=== PATIENT | male | born 1945 | race Caucasian/White ===

== ENCOUNTER 2024-02-25 09:00 | Outpatient (AMB) | payer MEDICARE, SELFPAY ==
[2024-02-25 09:14] VITALS: BP 102/62; PULSE 61; O2SAT 99; BMI 25.3
--- NOTE | 2024-02-25 09:14 | A.OFFVIS_ITS ---
Vital Signs 02/25/24 09:14 Height 5 ft 8 in Weight 166 lb 7.184 oz BMI 25.3 BP 102/62 Blood Pressure Location Lt brachial Position Sitting Pulse 61 Pulse Source Doppler Pulse Oximetry (%) 99 Oxygen Delivery Method Room Air Intake Visit Reasons: asthma Allergies Penicillins Allergy (Mild, Verified 02/25/24 09:17) Unknown HPI HPI asthma: Details: 79-year-old gentleman, nonsmoker, with asthma ongoing since 1970s, more active over the last 20 years previously controlled on Symbicort, changed to Wixela secondary to [place] formulary change, now with suboptimal control and significant effect on voice. Also has underlying environmental allergies. Patient denies exposure to industrial dusts. No family history of lung disease. Does not have pets at this time. [facility] Social History (Updated 02/25/24 @ 09:19 by CECE Renee) Patient Tobacco Use Status: Never used Tobacco Review of Systems Card Reports dyspnea on exertion ( Intermittent) Resp Reports cough, Denies excessive phlegm production, Reports dyspnea on exertion ( Intermittent) and Denies wheezing Aller/Immun Denies wheezing Physical Exam Vital Signs: Last Vital Signs Pulse 61 02/25/24 09:14 BP 102/62 02/25/24 09:14 Pulse Ox 99 02/25/24 09:14 Oxygen Delivery Method Room Air 02/25/24 09:14 BMI result Body Mass Index 25.3 Const General: no acute distress and alert Nutritional Appearance: not obese Orientation/consciousness: Other orientation findings ( oriented) HEENT Head: Yes atraumatic Eyes General: appearance normal, both eyes and all related structures Sclerae: sclerae normal EOM: EOMs intact bilaterally Neck Neck: Yes supple Lymphatic: no lymphadenopathy noted Resp Effort & Inspection: normal respiratory effort and no use of accessory muscles Auscultation: clear to auscultation bilaterally Cardio Rate: regular rate Rhythm: regular rhythm Heart sounds: no gallops, no murmurs and no rubs Skin General skin exam: other ( warm) Extrem General: No clubbing, No cyanosis and No edema Assessment & Plan Assessment & Plan (1) Asthma: Code(s): J45.909 - Unspecified asthma, uncomplicated Category: Medical Plan: suboptimal control and was changes on Wixela, will switch to Symbicort. Continue albuterol MDI. Prior PFT requested from [place]. (2) Environmental allergies: Code(s): Z91.09 - Other allergy status, other than to drugs and biological substances Category: Medical Plan: will obtain IgE level, CBC with differential, and RAST panel for further evaluation. Orders: Orders Resp Allergy Profile Region I Today Z91.09 - Other allergy status, other than to drugs and biological substances Complete Blood Count Auto Diff Today Z91.09 - Other allergy status, other than to drugs and biological substances Medications: New budesonide-formoterol 160-4.5 mcg/actuation (Symbicort) 2 puffs inhalation BID 10.2 grams 6RF 30 days Coding Level of Care Code New Pt Level 4 (19342) Diagnoses Asthma J45.909 Environmental allergies Z91.09
== END 2024-02-25 09:37 | disposition home or self-care (01) ==
PROVIDERS: PCP Physician Assistant Medical; Visit Provider Internal Medicine Pulmonary Disease
DX: J45.909 Unspecified asthma, uncomplicated (principal); Z91.09 Other allergy status, other than to drugs and biological substances
CPT/HCPCS: 99204

== ENCOUNTER 2024-02-25 09:00 | Outpatient (REF) | payer MEDICARE, SELFPAY ==
[2024-02-25 09:59] LABS: MANUAL DIFF FLAG NO
[2024-02-25 11:00] LABS: Basophils Percent Auto 1.2 % (0-2); Eosinophils Absolute Auto 0.1 X10*3/uL (0.0-0.4); Eosinophils Percent Auto 3.3 % (0-4); Hematocrit 46.1 % (42.0-52.0); Hemoglobin 15.4 g/dl (14.0-18.0); Imm Gran Abs Auto 0.01 X10*3/uL (0.00-0.03); Imm Gran Pct Auto 0.3 % (0.0-0.4); Lymphocytes Absolute Auto 1.5 X10*3/uL (1.2-4.9); Lymphocytes Percent Auto 43.5 % (20-40); Mean Corpuscular HGB Conc 33.4 g/dl (31.0-36.0); Mean Corpuscular Hemoglobin 30.6 pg (27.0-33.0); Mean Corpuscular Volume 91.7 fL (80.0-98.0); Mean Platelet Volume 9.8 fL (9.4-12.4); Monocytes Absolute Auto 0.3 X10*3/uL (0.1-1.2); Monocytes Percent Auto 9.8 % (2-11); Neutrophils Absolute Auto 1.4 x10*3/uL (2.0-8.3); Neutrophils Percent Auto 41.9 % (45-73); Platelet Count 146 X10*3/uL (160-400); Red Blood Count 5.03 X10*6/uL (4.60-5.80); Red Cell Distribution Width 13.8 % (11.0-16.0); White Blood Count 3.4 X10*3/uL (4.8-10.8)
[2024-03-04 08:28] LABS: Class Alternaria alternata 0/1; Class Aspergillus fumigatus 0; Class Bermuda Grass 0; Class Birch 0; Class Cat Dander 0; Class Cladosporium herbarum 0; Class Cockroach 0; Class Common Ragweed 0/1; Class Cottonwood 0; Class Derm. pterony 0/1; Class Dermatophagoides farinae 0/1; Class Dog Dander 0; Class Elm 0; Class Maple Box Elder 0; Class Mountain Cedar 0; Class Mouse Urine Protein 0; Class Mugwort 0; Class Oak 0; Class Penicillium crysogenum 0; Class Rough Pigweed 0; Class Sheep Sorrel 0; Class Sycamore 0; Class Timothy Grass 0; Class Walnut Tree 0; Class White Ash 0; Class White Mulberry 0; D001 IgE D pteronyssinus 0.14 kU/L; D002 - IgE D farinae 0.11 kU/L; E001 - IgE Cat Dander <0.10 kU/L; E005 - IgE Dog Dander <0.10 kU/L; E072-IgE Mouse Urine <0.10 kU/L; G002 IgE Bermuda Grass <0.10 kU/L; G006 - IgE Timothy Grass <0.10 kU/L; I006-IgE Cockroach, German <0.10 kU/L; Immunoglobulin E 6 kU/L (<OR=114); M001 IgE Penicillium chrysogen <0.10 kU/L; M002 - IgE Cladosporium herbar <0.10 kU/L; M003 - IgE Aspergillus fumigat <0.10 kU/L; M006 - IgE Alternaria alternat 0.22 kU/L; T001 IgE Maple/Box Elder <0.10 kU/L; T003 IgE Common Silver Birch <0.10 kU/L; T006 - IgE Cedar, Mountain <0.10 kU/L; T007 - IgE Oak, White <0.10 kU/L; T008 IgE Elm, American <0.10 kU/L; T010 - IgE Walnut <0.10 kU/L; T011 - IgE Maple Leaf Sycamore <0.10 kU/L; T014 - IgE Cottonwood <0.10 kU/L; T015 - IgE Ash, White <0.10 kU/L; T070 - IgE White Mulberry <0.10 kU/L; W001 - IgE Ragweed, Short 0.16 kU/L; W006 - IgE Mugwort <0.10 kU/L; W014 IgE Pigweed, Common <0.10 kU/L; W018 IgE Sheep Sorrel <0.10 kU/L
== END 2024-02-25 09:01 | disposition home or self-care (01) ==
LOC: HO.LAB 09:00
PROVIDERS: PCP Physician Assistant Medical; Visit Provider Internal Medicine Pulmonary Disease
DX: Z91.09 Other allergy status, other than to drugs and biological substances (principal)
CPT/HCPCS: 36415; 82785; 85025; 86003; 99202

== ENCOUNTER 2024-03-23 11:03 | Outpatient (AMB) | payer MEDICARE, SELFPAY ==
--- NOTE | 2024-03-23 11:08 | A.OFFVIS_ITS ---
Vital Signs 03/23/24 11:09 Height 5 ft 8 in Weight 167 lb BMI 25.4 BP 108/64 Blood Pressure Location Rt brachial Position Sitting Pulse 85 Pulse Source Doppler Pulse Oximetry (%) 98 Oxygen Delivery Method Room Air Intake Visit Reasons: Asthma Allergies Penicillins Allergy (Mild, Verified 03/23/24 11:17) Unknown HPI HPI Asthma: Details: 79-year-old gentleman, nonsmoker, with asthma ongoing since 1970s, more active over the last 20 years previously controlled on Symbicort, changed to W[place]ela [facility] to [facility] [facility], now with suboptimal control and significant effect on voice. Also has underlying environmental allergies. Patient denies exposure to industrial dusts. No family history of lung disease. Does not have pets at this time. After the last office visit patient is Symbicort was denied and he continue to use Wixela with reasonable symptom control, but significant hoarseness of his voice. He did complete his immunologic testing that shows some immunologic component to his symptoms. He denies recent exacerbations. [facility] Social History (Updated 02/25/24 @ 09:19 by Kristina [facility]) Patient Tobacco Use Status: Never used Tobacco Review of Systems Const Denies daytime sleepiness, Denies excessive sweating, Denies fatigue, Denies fever(s), Denies lethargy, Denies malaise, Denies night sweats, Denies snoring and Denies weight loss Eyes Denies blurry vision and Denies itchy eyes ENT Denies nasal congestion, Denies post nasal drip, Denies sinus pain, Denies sinus pressure and Denies other ( Thrush) Card Denies chest pain, Denies pedal edema, Denies dyspnea, Denies orthopnea and Denies paroxysmal nocturnal dyspnea Resp Denies cough, Denies hemoptysis, Denies excessive phlegm production, Denies dyspnea, Denies snoring and Denies wheezing GI Denies abdominal pain and Denies heartburn Musc Denies myalgias, Denies arthralgias and Denies joint swelling Skin/Breast Denies rash Neuro Denies memory loss and Denies seizure-like activity Psych Denies abnormal sleep pattern, Denies anxiety and Denies memory loss Endo Denies excessive sweating, Denies fatigue and Denies heat intolerance Gerardo/Lymph Denies easy bruising Aller/Immun Denies itchy eyes, Denies seasonal rhinorrhea and Denies wheezing Physical Exam Vital Signs: Last Vital Signs Pulse 85 03/23/24 11:09 BP 108/64 03/23/24 11:09 Pulse Ox 98 03/23/24 11:09 Oxygen Delivery Method Room Air 03/23/24 11:09 BMI result Body Mass Index 25.4 Const General: no acute distress and alert Nutritional Appearance: not obese Orientation/consciousness: Other orientation findings ( oriented) HEENT Head: Yes atraumatic Eyes General: appearance normal, both eyes and all related structures Sclerae: sclerae normal EOM: EOMs intact bilaterally Neck Neck: Yes supple Lymphatic: no lymphadenopathy noted Resp Effort & Inspection: normal respiratory effort and no use of accessory muscles Auscultation: clear to auscultation bilaterally Cardio Rate: regular rate Rhythm: regular rhythm Heart sounds: no gallops, no murmurs and no rubs Skin General skin exam: other ( warm) Extrem General: No clubbing, No cyanosis and No edema Assessment & Plan Assessment & Plan (1) Asthma: Code(s): J45.909 - Unspecified asthma, uncomplicated Category: Medical Plan: Reasonable control on Wixela and albuterol MDI. Continue current regimen. (2) Environmental allergies: Code(s): Z91.09 - Other allergy status, other than to drugs and biological substances Category: Medical Plan: Results of immunologic testing reviewed. Patient does have underlying immunologic component, however at this time it is reasonably well controlled with Wixela and Flonase. Continue current regimen. Will consider immunologic therapy if symptoms worsen. Coding Level of Care Code Est Pt Level 4 (49290) Diagnoses Asthma J45.909 Environmental allergies Z91.09
[2024-03-23 11:09] VITALS: BP 108/64; PULSE 85; O2SAT 98; BMI 25.4
== END 2024-03-23 11:41 | disposition home or self-care (01) ==
PROVIDERS: PCP Physician Assistant Medical; Visit Provider Internal Medicine Pulmonary Disease
DX: J45.909 Unspecified asthma, uncomplicated (principal); Z91.09 Other allergy status, other than to drugs and biological substances
CPT/HCPCS: 99214

== ENCOUNTER → 2024-03-23 11:03 | Outpatient (BNVA) | payer MEDICARE, SELFPAY | PROVIDERS: PCP Physician Assistant Medical; Visit Provider Internal Medicine Pulmonary Disease | DX: J45.909 Unspecified asthma, uncomplicated (principal); Z91.09 Other allergy status, other than to drugs and biological substances | CPT/HCPCS: 99212 ==

== ENCOUNTER 2024-09-27 14:16 | Outpatient (AMB) | payer MEDICARE, SELFPAY ==
[2024-09-27 14:25] VITALS: BP 124/70; PULSE 93; O2SAT 99; BMI 26.5
--- NOTE | 2024-09-27 14:25 | MHC.OFFVIS ---
Vital Signs 09/27/24 14:25 Height 5 ft 8 in Weight 174 lb BMI 26.5 BP 124/70 Blood Pressure Location Rt brachial Position Sitting Pulse 93 Pulse Source Doppler Pulse Oximetry (%) 99 Oxygen Delivery Method Room Air Intake Visit Reasons: Asthma Allergies Penicillins Allergy (Mild, Verified 03/23/24 11:17) Unknown HPI HPI Asthma: Details: 79-year-old gentleman, nonsmoker, followed for asthma and environmental allergies. His symptoms are well controlled on Wixela and albuterol MDI. He occasionally uses Flonase for environmental allergies. Patient did have an episode with exposure in a very old building that caused him to have increased asthma symptoms for approximately 24 hours, otherwise no recent exacerbations. [facility] Social History (Updated 02/25/24 @ 09:19 by Kristina Kiser Yudelka) Patient Tobacco Use Status: Never used Tobacco Review of Systems Const Denies daytime sleepiness, Denies excessive sweating, Denies fatigue, Denies fever(s), Denies lethargy, Denies malaise, Denies night sweats, Denies snoring and Denies weight loss Eyes Denies blurry vision and Denies itchy eyes ENT Denies nasal congestion, Denies post nasal drip, Denies sinus pain, Denies sinus pressure and Denies other ( Thrush) Card Denies chest pain, Denies pedal edema, Denies dyspnea, Denies orthopnea and Denies paroxysmal nocturnal dyspnea Resp Denies cough, Denies hemoptysis, Denies excessive phlegm production, Denies dyspnea, Denies snoring and Denies wheezing GI Denies abdominal pain and Denies heartburn Neuro Denies memory loss and Denies seizure-like activity Psych Denies abnormal sleep pattern, Denies anxiety and Denies memory loss Endo Denies excessive sweating, Denies fatigue and Denies heat intolerance Gerardo/Lymph Denies easy bruising Aller/Immun Denies itchy eyes, Denies seasonal rhinorrhea and Denies wheezing Physical Exam Vital Signs: Last Vital Signs Pulse 93 09/27/24 14:25 BP 124/70 09/27/24 14:25 Pulse Ox 99 09/27/24 14:25 Oxygen Delivery Method Room Air 09/27/24 14: BMI result Body Mass Index 26.5 Const General: no acute distress and alert Nutritional Appearance: not obese Orientation/consciousness: Other orientation findings ( oriented) HEENT Head: Yes atraumatic Eyes General: appearance normal, both eyes and all related structures Sclerae: sclerae normal EOM: EOMs intact bilaterally Neck Neck: Yes supple Lymphatic: no lymphadenopathy noted Resp Effort & Inspection: normal respiratory effort and no use of accessory muscles Auscultation: clear to auscultation bilaterally Cardio Rate: regular rate Rhythm: regular rhythm Heart sounds: no gallops, no murmurs and no rubs Skin General skin exam: other ( warm) Extrem General: No clubbing, No cyanosis and No edema Assessment & Plan Assessment & Plan (1) Asthma: Code(s): J45.909 - Unspecified asthma, uncomplicated Category: Medical Plan: Well controlled on Wixela and albuterol MDI. Continue current regimen. (2) Environmental allergies: Code(s): Z91.09 - Other allergy status, other than to drugs and biological substances Category: Medical Plan: Controlled on as needed Flonase. Does have underlying immunologic component, however this time reasonable controlled on inhaled corticosteroid/Flonase, will consider immunologic therapy if fails to be controlled. Coding Level of Care Code Est Pt Level 4 (75883) Diagnoses Asthma J45.909 Environmental allergies Z91.09
--- OUTSIDE RECORDS SUMMARY | 2024-09-27 16:46 | XMS_ITS | Encounter Summary ---
Author Name [facility] Organization [facility] Address [address] [place] [address] Care Team Providers Care Cooker Loader Name Role Phone EYAD SIMON Primary Care Provider Unavailabl NGOZI Cuellar Primary Care Provider Unavailab le Insurance Providers: All historical and current Section Date Range: From patient's date of to the date document was created. This section includes the names of all active insurance providers for the patient. Insurance Provider Type of Coverage Plan Name Start of Policy Coverage End of Policy Coverage Group Number Member ID Insurance Provider's Telephone Number Policy Sawyer's Name Patient's Relationship to Policy Sawyer [facility] MEDICARE SUPPLEMEN MONIQUE MEDIC ARE SUPP Aug 14, 2013 MEDICAR E SUPP [id number] JOEL PERRY STAVE PATIENT MEDICARE (WNR) MEDICARE (M) PART B Aug 14, 2012 PART B [id number] PERRYJOEL STAVE PATIENT MEDICARE (WNR) MEDICARE (M) PART B Aug 14, 2012 PART B [id number] JOEL PERRY STAVE PATIENT MEDICARE (WNR) MEDICARE (M) PART A Dec 13, 2010 PART A [id number] PERRYJOEL STAVE PATIENT MEDICARE (WNR) MEDICARE (M) PART A Dec 13, 2010 PART A [id number] JOEL PERRY PATIENT MEDICARE (WNR) MEDICARE (M) PART A Dec 13, 2010 PART A [id number] JOEL PERRY PATIENT [facility] Aug 14, 2013 [id number] JOEL PERRY PATIENT Selected Encounter This section includes the information on record at [place] for the Encounter. Date/Time Encounter Type Encounter Description Reason Pro vider Source Nov 23, 2023 10:42 AM Outpatient Encounter PRIMARY CARE/MEDICINE IHE Encounter Template Text not used by [place] Plan of Treatment: Future Appointments (+ 6 months) and Future Tests (+/- 45 days) The Plan of Treatment section includes future care activities for the patient from all [place] treatmentfacilities. This section includes future appointments and future orders which are active, pending or scheduled. Future Appointments This section includes appointments that were scheduled to occur 6 months from the date of the Encounter, up to a maximum of 20 appointments. The data comes from all [place] treatment facilities. Appointment Date/Time Appointment Type Appointme nt Facility Name Dec 11, 2023 02:00 PM [facility] February 10, 2024 09:00 AM AMBULATORY - MEDICINE [facility] Encounter Notes: All associated encounter notes This section contains the clinical notes associated to the Encounter. Date/Time Encounter Note(s) Provider Source Nov 23, 2023 10:47 AM ADDENDUM: LOCAL TITLE: Addendum STANDARD TITLE: ADDENDUM DATE OF NOTE: NOV 23, 2023@10:47:27 ENTRY DATE: NOV 23, 2023@10:47:28 AUTHOR: KHALIDA BARNES EXP COSIGNER: URGENCY: STATUS: COMPLETED 60 MINS NEW PT APPT PT IS COMING FROM [facility] /alta/ Khalida Barnes ADVANCED AUTOPSY PATHOLOGIST Signed: 11/23/2023 10:48 Receipt Acknowledged By: 11/25/2023 14:26 /es/ DEMARCO DIAZ ADVANCED AUTOPSY PATHOLOGIST 11/24/2023 10:59 /es/ ROSA ELENA LEVI RN-BC REGISTERED NURSE 11/23/2023 11:05 /es/ WILIAN EMELIA, [employer] Licensed Practical Nurse ======== --- Original Document --- 11/23/23 PATIENT LETTER (T): ANDRES Obando [address], [place], [address] Dear Ramon Walden to patient aligned care team 8 (PACT 8) with Dr. SORIANO. Prior to meeting you at your new patient appointment we are requesting some of your past medical history so that we may provide you with the exceptional care you deserve. Please note that it is very helpful to have these documents at least two days prior to your appointment date as the more information we have the better we will be able to meet your needs: * Last History & Physical * Immunization records * Medication list * Diagnosis list * Most recent labs * Diagnostic screens (Colonoscopy, Abdominal Aortic Aneurysm screen, Mammograms, PAPS, etc.) You may either drop the requested records off in person to [address] [place] [address] or you may have them faxed to: [phone] ATTN: PACT 8 *Also please complete the enclosed new patient packet and drop it off at our [place] location: [address] [place] [address]* If you have any questions please do not hesitate to contact the [facility] call center at [phone]. We look forward to providing your health care! KHALIDA BARNES LYTLE Nov 23, 2023 10:42 AM LETTERS: LOCAL TITLE: PATIENT LETTER (T) STANDARD TITLE: LETTERS DATE OF NOTE: NOV 23, 2023@10:42 ENTRY DATE: NOV 23, 2023@10:43:14 AUTHOR: KHALIDA BARNES EXP COSIGNER: URGENCY: STATUS: COMPLETED PATIENT LETTER (T) Has ADDENDA [facility] Toll Free Number Primary Care Telephone Assistance can be reached at extension [phone] [facility] scheduling can be reached at extension [phone] [facility] scheduling can be reached at ext [phone] ANDRES Obando [address], [place], [address] Dear , Welcome to patient aligned care team 8 (PACT 8) with Dr. SORIANO. Prior to meeting you at your new patient appointment we are requesting some of your past medical history so that we may provide you with the exceptional care you deserve. Please note that it is very helpful to have these documents at least two days prior to your appointment date as the more information we have the better we will be able to meet your needs: * Last History & Physical * Immunization records * Medication list * Diagnosis list * Most recent labs * Diagnostic screens (Colonoscopy, Abdominal Aortic Aneurysm screen, Mammograms, PAPS, etc.) You may either drop the requested records off in person to [address] [place] [address] or you may have them faxed to: [phone] ATTN: PACT 8 *Also please complete the enclosed new patient packet and drop it off at our [place] location: [address] [place] [address]* If you have any questions please do not hesitate to contact the [facility] call center at [phone]. We look forward to providing your health care! 11/23/2023 ADDENDUM STATUS: COMPLETED 60 MINS NEW PT APPT PT IS COMING FROM [facility] /[facility]/ Khalida Barnes ADVANCED AUTOPSY PATHOLOGIST Signed: 11/23/2023 10:48 Receipt Acknowledged By: * AWAITING SIGNATURE * DEMARCO DIAZ * AWAITING SIGNATURE * SREEKANTH BELLO * AWAITING SIGNATURE * WILIAN KAPOOR Sincerely, Your Primary Care Team [facility] [address] [facility] [address] [place] [address] [place] [address] [phone] [facility] [address] [place] [address] [place] [address] [phone] [facility] [address] [facility] [place] [address] [place] [address] [phone] KHALIDA BARNES LYTLE
--- OUTSIDE RECORDS SUMMARY | 2024-09-27 16:46 | XMS_ITS | Encounter Summary ---
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 Name Role Phone EYAD SIMON Primary Care [...] SUPP Aug 14, 2013 MEDICAR E SUPP [id number] JOEL PERRY STAVE PATIENT MEDICARE (WNR) MEDICARE (M) PART B Aug 14, 2012 PART B [id number] PERRY,GU STAVE PATIENT MEDICARE (WNR) MEDICARE (M) PART B Aug 14, 2012 PART B [id number] JOEL PERRY STAVE PATIENT MEDICARE (WNR) MEDICARE (M) PART A Dec 13, 2010 PART A [id number] [phone] JOEL PERRY STAVE PATIENT MEDICARE (WNR) MEDICARE (M) PART A Dec 13, 2010 PART A [id number] [phone] JOEL PERRY PATIENT MEDICARE (WNR) MEDICARE (M) PART A Dec 13, 2010 PART A [id number] JOEL PERRY PATIENT [facility] CARTER HERNÁNDEZ Aug 14, 2013 [id number] JOEL PERRY PATIENT Selected Encounter This section includes the information on record at [place] for the Encounter. Date/Time Encounter Type Encounter Description Reason Provider Source Dec 11, 2023 02:00 PM OFFICE O/P NEW MOD 45 MIN PRIMARY CARE/MEDICINE ICD-10-CM I10 Essential (primary) hypertension ELIF SORIANO Elijah Encounter Template Text not used by [place] Assessments - Encounter Diagnoses This section includes the primary and secondary diagnoses documented for the Encounter. Date/Time Primary/Secondary Diagnosis Diagnosis Name Provider Source Dec 11, 2023 03:04 PM PRIMARY Essential (primary) hypertension ELIF SORIANO [place] Dec 11, 2023 03:04 PM SECONDARY Allergic rhinitis, unspecified ELIF SORIANO [place] Dec 11, 2023 03:04 PM SECONDARY Contact with and exposure to other hazardous substances ELIF SORIANO [place] Dec 11, 2023 03:04 PM SECONDARY Hyperlipidemia, unspecified ANALYLEELIF Jha [place] Dec 11, 2023 03:04 PM SECONDARY Unspecified atrial fibrillation ELIF SORIANO [place] Plan of Treatment: Future Appointments (+ 6 months) and Future Tests (+/- 45 days) The Plan of Treatment section includes future care activities for the patient from all [place] treatmentfacilities. This section includes future appointments and future orders which are active, pending or scheduled. Future Appointments This section includes appointments that were scheduled to occur 6 months from the date of the Encounter, up to a maximum of 20 appointments. The data comes from all [place] treatment facilities. Appointment Date/Time Appointment Type Appointme nt Facility Name February 10, 2024 09:00 AM AMBULATORY - MEDICINE [facility] Vital Signs: All taken on the encounter date This section contains inpatient and outpatient Vital Signs collected on the date of the Encounter. Date/Time Temperature Pulse Blood Pressure Respiratory Rate SP02 Pain Height Weight Body Mass Index Source Dec 11, 2023 02:02 PM 98.6 84 135/79 96 68 171 26 [facility] IELD Social History: Smoking Status (Most current) and Tobacco Use (All prior to encounter date) This section includes the most current, and the historical, smoking and tobacco- related health factors from the [place] facility where the Encounter took place. Current Smoking Status This section includes the most current smoking, or tobacco-related health factor, from the [place] facility where the Encounter took place. Date/Time Current Smoking Status Comment Nile rushing Dec 11, 2023 02:00 PM VA-TOBACCO NEVER USED [place] Encounter Notes: All associated encounter notes This section contains the clinical notes associated to the Encounter. Date/Time Encounter Note(s) Provider Source Dec 11, 2023 02:29 PM PHYSICIAN NOTE: LOCAL TITLE: MD NOTE STANDARD TITLE: PHYSICIAN NOTE DATE OF NOTE: DEC 11, 2023@14:29 ENTRY DATE: DEC 11, 2023@14:29:11 AUTHOR: ELIF SORIANO EXP COSIGNER: URGENCY: STATUS: COMPLETED HISTORY OF PRESENT ILLNESS: NEW PATIENT 78 yo MALE , presents at the [facility] to establish connection with a [facility] PCP to be able to access services. The followed with [place] in [facility]- last seen in may 2023. labs- no new labs PCP non VA- Saul LEBLANC Problem List - Active 1-HTN 2-HLP 3-Atrial fibrilation 4-Asthma 5-Allergic rhinithis -comanaged The following VA and Non-VA meds were reconciled with patient: Active Outpatient Medications (including Supplies): MEDS ========= see list ALLERGIES: ========= PCN pollen melon LAB HISTORY: no new labs PMH ========= HTN, Asthma, Atrial fibrilation, pollen allergies , CAD- Triple bypass, flu, amoebic dysentery, allergic rhinthis PSH ========= tripple bypass- 2015 appendectomy tonsilectomy SOCIAL HISTORY: with 2 children Smoking denies Drugs denies Alcohol denies HISTORY: 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 - [employer] FROM Jun TO Feb COMBAT SERVICE INDICATED: No REVIEW OF SYSTEMS: No fever, chills No chest pain shortness of breath; sometimes palpitations No cough or wheezing No abdominal pain nausea or vomiting No dysuria No joints pain No headaches or dizziness PHYSICAL EXAMINATION: WD/overweight [place] seems to be in nonacute distress at the moment of examination S1-S2 positive, RRR LAURA, CTA bilateral Abdomen soft nontender to palpation No edema lower extremities AAO x3; ambulates without help ASSESSMENT/PLAN: 1-HTN-blood pressure controlled today in office He states he monitors 1 hour twice a week and his systolic blood pressure usually is in 110s Continue current medications diet and start exercising He states his watches his diet but not exercising 2-HLP- continue statins, healthy diet and exercise as tolerated 3-Atrial fibrilation with heart rate controlled Tolerating blood thinner without any bleeding signs He will follow-up with cardiology in community 4-Asthma-no signs of exacerbation continue current nebulizer 5-Allergic rhinithis -continue fluticasone as needed -comanaged FOLLOW UP: ========= RTC - f/u in 2 months with fasting labs Today's documentation was made using voice recognition software. This note may contain spelling/grammatical errors secondary to this software. Every effort is made to correct errors, but if mistakes are found they need to be taken in context. UPCOMING APPOINTMENTS: No data available No barriers; Patient understands and agrees to current treatment plan. If pt has any questions, concerns, or changes in current health status he/she will call or come in to the VA. Toxic Exposure Screening Follow-Up: Exposure Concern(s): 12/11/2023 Agent [place] - Toxic Exposure Concern Follow-up Question(s): 12/11/2023 No Questions - Toxic Exposure Concern [place]/caregiver has no health or medical concerns related to their concern of environmental exposure. The following connections were provided to the [place]/caregiver: [employer] ([employer]) for Benefits/claims: Medication Reconciliation: Outpatient: Has the patient been taking medications as documented in the EMLR? No: Discrepencies were identified. See below. Essential Medication List for Review used to complete this medication reconciliation. INCLUDED IN THIS LIST: Alphabetical list of active outpatient prescriptions dispensed from this [place] (local) and dispensed from another [place] or [facility] facility (remote) as well as inpatient orders (local, pending and active), local clinic medications, locally documented non-VA medications, and local prescriptions that have or been discontinued in the past 90 days. - Discrepancies were identified, addressed, and discussed with the patient/caregiver at this encounter. Discrepancies: new patient - All changes in medications, including all non-VA/Herbal/OTC medications were entered into CPRS. - If there were any medications the patient should no longer take, they were discontinued. - The patient/caregiver was instructed to update this list, discard old lists, and take this list to the next appointment, whether with a VA or non-VA provider. JLV Link Data on this list may not be complete. Please check JLV. Allergies/ADRs (Tool #5) FACILITY ALLERGY/ADR -------- [facility] [place] [facility] [place] [facility] [place] [facility] [place] [facility] [facility] [place] [facility] [place] [facility] [place] Med Recon NoGlossary (Tool #1) INCLUDED IN THIS LIST: Alphabetical list of active outpatient prescriptions dispensed from this [facility] (local) and dispensed from another [place] or [facility] facility (remote) as well as inpatient orders (local pending and active), local clinic medications, locally documented non-VA medications, and local prescriptions that have or been discontinued in the past 90 days. Non-VA Meds Last Documented On: Data not found NOTE The display of VA prescriptions dispensed from another [place] or [facility] facility (remote) is limited to active outpatient prescription entries matched to National Drug File at the originating site and may not include some items such as investigational drugs, compounds, etc. NOT INCLUDED IN THIS LIST: Medications self-entered by the patient into personal health records (i.e. [employer]) are NOT included in this list. Non-VA medications documented outside this [place], remote inpatient orders (regardless of status) and remote clinic medications are NOT included in this list. The patient and provider must always discuss medications the patient is taking, regardless of where the medication was dispensed or obtained. Remote APIXABAN 5MG TAB TAKE ONE TABLET BY MOUTH TWICE A DAY TO PREVENT BLOOD CLOTS MUST OBTAIN UPDATED LAB WORK FOR FURTHER RENEWALS Last Filled: 09/21/23 (Active at [facility]) Rx Expiration Date: 03/18/24 Days Supply: 90 Remote ATORVASTATIN CA 80MG TAB TAKE ONE TABLET BY MOUTH AT BEDTIME FOR LOWERING CHOLESTEROL Last Filled: 10/09/23 (Active at [facility]) Rx Expiration Date: 04/16/24 Days Supply: 90 Remote FLUTICASONE 100MCG/SALMETEROL 50MCG INHL,ORAL,DISKUS,60 INHALE 1 PUFF BY MOUTH TWICE A DAY *USE REGULARLY TO PREVENT SHORTNESS OF BREATH - RINSE MOUTH AFTER USE* Last Filled: 06/29/23 (Active at [facility]) Rx Expiration Date: 12/13/23 Days Supply: 90 Remote HYDROCHLOROTHIAZIDE 25MG/TRIAMTERENE 37.5MG TAB TAKE 1 TABLET BY MOUTH EVERY DAY FOR BLOOD PRESSURE Last Filled: 09/21/23 (Active at [facility]) Rx Expiration Date: 04/22/24 Days Supply: 90 Remote LOSARTAN POTASSIUM 100MG TAB TAKE ONE TABLET BY MOUTH EVERY DAY FOR HEART AND BLOOD PRESSURE Last Filled: 09/21/23 (Active at [facility]) Rx Expiration Date: 04/22/24 Days Supply: 90 Remote METOPROLOL TARTRATE 100MG TAB TAKE ONE TABLET BY MOUTH EVERY 12 HOURS FOR HEART AND BLOOD PRESSURE Last Filled: 09/21/23 (Active at [facility]) Rx Expiration Date: 03/18/24 Days Supply: 90 SUPPLIES /alta/ ELIF SORIANO MD PRIMARY CARE PHYSICIAN Signed: 12/11/2023 15:04 ELIF SORIANO [place] Dec 11, 2023 02:03 PM PREVENTIVE MEDICIN E NURSING NOTE: LOCAL TITLE: CLINICAL REMINDERS/NURSING STANDARD TITLE: PREVENTIVE MEDICINE NURSING NOTE DATE OF NOTE: DEC 11, 2023@14:03 ENTRY DATE: DEC 11, 2023@14:03:42 AUTHOR: WILIAN KAPOOR COSIGNER: URGENCY: STATUS: COMPLETED Tobacco Pack Year History: Patient never smoked cigarettes or smoked FEWER THAN 100 cigarettes/lifetime Advance Directive Screen MH AD: Patient does not have a completed advance directive on file at any facility, [place] or outside. S/he is not interested in completing one at this time. The patient received education about Advance Directives and written notification of his/her rights. Suicide Screen: C-SSRS Screening Kay Suicide Severity Rating Scale (C-SSRS) screener 1. Over the past month, have you wished you were or wished you could go to sleep and not wake up? No 2. Over the past month, have you had any actual thoughts of killing yourself? No 3. Over the past month, have you been thinking about how you might do this? Response not required due to responses to other questions. 4. Over the past month, have you had these thoughts and had some intention of acting on them? Response not required due to responses to other questions. 5. Over the past month, have you started to work out or worked out the details of how to kill yourself? Response not required due to responses to other questions. 6. If yes, at any time in the past month did you intend to carry out this plan? Response not required due to responses to other questions. 7. In your lifetime, have you ever done anything, started to do anything, or prepared to do anything to end your life (for example, collected pills, obtained a gun, gave away valuables, went to the roof but didn't jump)? No 8. If YES, was this within the past 3 months? Response not required due to responses to other questions. Toxic Exposure Screening: The /caregiver was asked if they believe the [place] experienced any toxic exposure(s), such as Airborne Hazards and Open Burn Pit, [place] War related exposures, Agent [place], Radiation, contaminated water at [place] or other such exposures, while serving in the Armed Forces. /caregiver believes the [place] was exposed to the following while serving in the Armed Forces: Agent [place]: [place]/caregiver was made aware of educational resources that includes information on the Registry Program, presumptive conditions and how to file a claim. Printed information was offered and provided if desired. No questions at this time /caregiver was informed of local points of contact. Contact information for local resources: Benefits/Claim for Disability Compensation Questions:National VBA [place] Healthcare Enrollment: [facility] Eligibility direct dialed at [phone] Registry: [facility] Health Coordinator ext [phone] Toxic Exposure Screening Follow-Up reminder is needed. Name of person notified: Elif Soriano M.D. Homelessness/Food Insecurity Screen: In the past 2 months, have you been living in stable housing that you own, rent, or stay in as part of a household? Yes - Living in stable housing. Are you worried or concerned that in the next 2 months you may NOT have stable housing that you own, rent, or stay in as part of a household? No - Not worried about housing near future The [place] reports the following: Within the past 12 months, you worried whether your food would run out before you got money to buy more. Never true Within the past 12 months, the food you bought just didn't last and you didn't have money to get more. Never true Depression Screening: Perform PHQ-2 A PHQ-2 screen was performed. The score was 0 which is a negative screen for depression. Over the past two weeks, how often have you been bothered by the following problems? 1. Little interest or pleasure in doing things Not at all 2. Feeling down, depressed, or hopeless Not at all Falls & Incontinence Screen: Falls Screen: During the past 12 months, did the patient report any falls? 4. No falls within the past year. Incontinence Screen: During the past 12 months, has the patient has any characteristics of incontinence (ability, voiding, leakage, etc.)? No incontinence. Pneumococcal Conjugate Vaccine (PCV15/PCV20): Refuses PCV vaccine Immunization: PNEUMOCOCCAL CONJUGATE, UNSPECIFIED FORMULATION Refusal Reason: PATIENT DECISION Patient refuses all immunization(s) in the PneumoPCV group Date Documented: 12/11/23 14:05 Preferred Language: What is your, or your caregiver's preferred language for healthcare? Preferred Language: [place] PTSD Screening: PC-PTSD-5 A PTSD screening test (PC-PTSD-5) was negative (score=0). IN THE PAST MONTH, have you ever had any experience that was so frightening, horrible or traumatic. For example: A serious accident or fire a physical or sexual assault or abuse An earthquake or flood A war Seeing someone be killed or seriously injured Having a loved one through homicide or suicide 1. Have you ever experienced this kind of event? NO 2. Had nightmares about the event(s) or thought about the event(s) when you did not want to? Response not required due to responses to other questions. 3. Tried hard not to think about the event(s) or went out of your way to avoid situations that reminded you of the event(s)? Response not required due to responses to other questions. 4. Been constantly on guard, watchful, or easily startled? Response not required due to responses to other questions. 5. [place] numb or detached from people, activities, or your surroundings? Response not required due to responses to other questions. 6. [place] guilty or unable to stop blaming yourself or others for the event(s) or any problems the event(s) may have caused? Response not required due to responses to other questions. Tobacco Use Screening: The patient has never used tobacco. Influenza Immunization: The patient has received the seasonal influenza vaccine for the current season at another location. Documented: INFLUENZA, UNSPECIFIED FORMULATION Historical Date Administered: Jun 2023 Exact date unknown Outside Location: Outside Healthcare Provider Information Source: SOURCE UNSPECIFIED Alcohol Use Screen (AUDIT-C): Alcohol Screen: SCREEN FOR ALCOHOL (AUDIT-C) An alcohol screening test (AUDIT-C) was negative (score=1). 1. How often did you have a drink containing alcohol in the past year? Consider a drink to be a 12 ounce can or bottle of regular beer, 8 ounces of malt liquor, a 5 ounce glass of table wine, or a 1.5 ounce shot of liquor (like scotch, gin, or vodka). Monthly or less 2. How many drinks containing alcohol did you have on a typical day when you were drinking in the past year? Zero drinks 3. How often did you have six or more drinks on one occasion in the past year? Never COVID-19 Immunization: Defer vaccine, reassess in 1 year Reason: DECLINED Tdap Immunization: The patient declines to receive the recommended dose of Tdap vaccine. Immunization: TDAP Refusal Reason: PATIENT DECISION Patient refuses all immunization(s) in the TDAP group Date Documented: 12/11/23 14:06 Herpes Zoster (Shingles) Vaccine: The patient declines to receive the recommended dose of zoster (shingles) vaccine. Immunization: ZOSTER RECOMBINANT Refusal Reason: PATIENT DECISION Patient refuses all immunization(s) in the ZOSTER group Date Documented: 12/11/23 14:06 Sexual Orientation: The patient thinks of their sexual orientation as: Straight or Heterosexual RHS Screen: RHS Screen Environmental Check Upon inquiry, the individual reports that the environment is safe to proceed. Informed Consent to Screen and Document The individual consents to proceed with screening. The individual consents to documentation of responses. PRIMARY SCREEN: In the past 12 months, how often did a current or former intimate partner (e.g., boyfriend, girlfriend, , , sexual partner): 1. Scream or curse at you Never 2. Insult or talk down to you Never 3. Threaten you with harm Never 4. Physically hurt you Never 5. Force or pressure you to have sexual contact against your will, or when you were unable to say no Never ?? The HITS tool (items 1-4 above) is [place] copyright protected by Duane Rush MD, and the user has full rights to use it throughout the [place] system. PRIMARY SCREEN RESULT: The Primary Screen is NEGATIVE. The individual answered never to all forms of IPV above (i.e., answered never to all 5 items) The individual accepts education and/or resources: No EDUCATION: The individual indicated readiness to learn. Education offered during this session as noted above. The individual indicated understanding by asking relevant questions and making appropriate comments. No barriers to learning were observed or identified. == PROVIDER TO ADDRESS Hep C and HIV REMINDERS=== /alta/ WILIAN KAPOOR LPN Licensed Practical Nurse Signed: 12/11/2023 14:07 WILIAN KAPOOR [place]
--- OUTSIDE RECORDS SUMMARY | 2024-09-27 16:46 | XMS_ITS | Encounter Summary ---
Author Name [facility] [place] Address [address] [place] [address] Care Team Providers Care Tray Worker Name Role Phone EYAD SIMON Primary Care [...] SUPP Aug 14, 2013 MEDICAR E SUPP [id number] JOEL PERRY STAVE PATIENT MEDICARE (WNR) MEDICARE (M) PART B Aug 14, 2012 PART B [id number] PERRYJOEL STAVE PATIENT MEDICARE (WNR) MEDICARE (M) PART B Aug 14, 2012 PART B [id number] [phone] JOEL PERRY STAVE PATIENT MEDICARE (WNR) MEDICARE (M) PART A Dec 13, 2010 PART A [id number] PERRYJOEL STAVE PATIENT MEDICARE (WNR) MEDICARE (M) PART A Dec 13, 2010 PART A [id number] [phone] JOEL PERRY PATIENT MEDICARE (WNR) MEDICARE (M) PART A Dec 13, 2010 PART A [id number] [phone] JOEL PERRY PATIENT [facility] HERN[facility]Z Aug 14, 2013 [id number] JOEL PERRY PATIENT Selected Encounter This section includes the information on record at [place] for the Encounter. Date/Time Encounter Type Encounter Description Reason Pro vider Source February 04, 2024 04:03 PM Outpatient Encounter PRIMARY CARE/MEDICINE IHE Encounter Template Text not used by [place] Plan of Treatment: Future Appointments (+ 6 months) and Future Tests (+/- 45 days) The Plan of Treatment section includes future care activities for the patient from all [place] treatmentfacilities. This section includes future appointments and future orders which are active, pending or scheduled. Future Appointments This section includes appointments that were scheduled to occur 6 months from the date of the Encounter, up to a maximum of 20 appointments. The data comes from all [place] treatment facilities. Appointment Date/Time Appointment Type Appointme nt Facility Name February 10, 2024 09:00 AM AMBULATORY - MEDICINE [facility] Aug 03, 2024 01:00 PM AMBULATORY - MEDICINE [facility] Lab Results: +/- 30 days of the encounter This section includes the Chemistry and Hematology Lab Results on record with [place] for the patient. Radiology Reports and Pathology Reports are provided separately, in subsequent sections. Lab Results This section contains the Chemistry/Hematology Results that were resulted 30 days before or 30 daysafter the date of the Encounter. Date/Time Source Result Type Result - Unit Interpretation Reference Range Comment February 04, 2024 08:48 AM [facility] PT & INR (COUMADIN) Specimen Type: PLASMA No comment entered. Ordering Provider: EYAD SIMON Report Released Date/Time: Dec 18, 2023 08:42 AM Reporting [facility]: [facility] [address] [facility] [address] Performing Lab: [address] [address] INR 1.7 PROTIME 18.9 s H 10.0-13.1 February 04, 2024 08:48 AM [facility] TSH Specimen Type: SERUM No comment entered. Ordering Provider: CHANDANA SORIANO Report Released Date/Time: January 28, 2024 08:49 AM Reporting Lab: [facility] [address] [address] Performing Lab: [facility] [address] TSH 1.80 u[IU]/mL 0.35-5.00 February 04, 2024 08:48 AM [facility] BASIC METABOLIC PANEL (fasting) Specime n Type: SERUM No comment entered. Ordering Provider: CHANDANA SORIANO Report Released Date/Time: January 28, 2024 08:49 AM Reporting Lab: [facility] [address] [address] Performing Lab: [facility] [address] UREA NITROGEN 45 mg/dL H 7-25 GLUCOSE 105 mg/dL H 65-100 SODIUM 138 mmol/L 135-145 POTASSIUM 3.8 mmol/L 3.5-5.0 CHLORIDE 108 mmol/L 100-110 CO2 23 meq/L 20-30 CREATININE, Serum 1.49 mg/dL H 0.50-1.40 eGFR(CKD-EPI 2020) 48 mL/min L >60 February 04, 2024 08:48 AM [facility] LIPID PANEL FASTING Specimen Type: SERUM No comment entered. Ordering Provider: CHANDANA SORIANO Report Released Date/Time: January 28, 2024 08:49 AM Reporting Lab: [facility] [address] Performing Lab: [facility] [address] CHOLESTEROL 105 mg/dL TRIGLYCERIDE 68 mg/dL 0-150 LDL calculated 58 mg/dL 0-129 CHOL/HDL 3.2 HDL CHOLESTEROL 33 mg/dL L 40-60 February 04, 2024 08:48 AM [facility] LIVER FUNCTION Specimen Type: SERUM No comment entered. Ordering Provider: CHANDANA SORIANO Report Released Date/Time: January 28, 2024 08:49 AM Reporting Lab: [facility] [address] Performing Lab: [address] [address] PROTEIN,TOTAL 6.3 g/dL 6.0-8.3 ALBUMIN 3.7 g/dL 3.5-5.0 ALKALINE PHOSPHATASE 69 U/L 40-150 AST 18 U/L 5-34 ALT 18 U/L BILIRUBIN, TOTAL 0.9 mg/dL 0.2-1.2 February 04, 2024 08:48 AM [facility] CBC AND DIFF (AUTO) Specimen Type: BLOOD No comment entered. Ordering Provider: CHANDANA SORIANO Report Released Date/Time: January 28, 2024 08:49 AM Reporting Lab: [address] [address] Performing Lab: [address] [address] WBC 4.09 10*3/uL L 4.50-11.00 RBC 4.90 10*6/uL 4.23-5.66 HGB 14.8 g/dL 12.8-17 HCT 45.1 39.2-50.4 MCV 92.0 fL 82-99 MCHC 32.8 g/dL 30.8-35.1 PLT 131 10*3/uL L 140-360 RDW-CV 13.4 12.0-16.0 Vermillion, Abs 0.54 10*3/uL 0.30-1.10 MCH 30.2 pg 26.2-32.6 Neut % 36.2 L 43.7-75.8 Lymph % 46.5 H 14.0-42.3 Vermillion % 13.2 5.1-13.7 Eos % 2.9 0.4-6.8 Baso % 1.2 0.1-2.0 Neut, Abs 1.48 10*3/uL L 2.20-7.60 Lymph, Abs 1.90 10*3/uL 1.00-3.20 Eos, Abs 0.12 10*3/uL 0.03-0.44 Baso, Abs 0.05 10*3/uL 0.01-0.13 Immature Gran % 0.0 0.0-0.7 Immature Gran, Abs 0.00 10*3/uL 0.00-0.06 February 04, 2024 08:48 AM [facility] HEMOGLOBIN A1C PANEL Specimen Type: BLOOD Comment: Values obtained from A1C measurements can vary. For atypical A1C assays, a reported value of 7.0 could actually be between 6.72 and 7.28 if measured by a reference method. A reported value of 9.0 could actually be between 8.73 and 9.27. Ref: http://www.ngs p.org/CAPdata. asp Ordering Provider: CHANDANA SORIANO Report Released Date/Time: January 28, 2024 08:49 AM Reporting Lab: [address] [address] Performing Lab: [address] [address] HEMOGLOBIN A1C 5.8 H 4.0-5.6 Encounter Notes: All associated encounter notes This section contains the clinical notes associated to the Encounter. 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 /es/ DEMARCO DIAZ ADVANCED BOBBIN WASHER Signed: 02/04/2024 16:05 DEMARCO DIAZ SAYDA
--- OUTSIDE RECORDS SUMMARY | 2024-09-27 16:46 | XMS_ITS | Encounter Summary ---
Author Name [facility] [place] Address [address] [place] [address] Care Team Providers Care Show Girl Name Role Phone EYAD SIMON Primary Care [...] SUPP Aug 14, 2013 MEDICAR E SUPP [id number] JOEL PERRY PATIENT MEDICARE (WNR) MEDICARE (M) PART B Aug 14, 2012 PART B [id number] [phone] [id number] JOEL PERRY STAVE PATIENT MEDICARE (WNR) MEDICARE (M) PART B Aug 14, 2012 PART B [id number] JOEL PERRY PATIENT MEDICARE (WNR) MEDICARE () PART A Dec 13, 2010 PART A [id number] [phone] JOEL PERRY STAVE PATIENT MEDICARE (WNR) MEDICARE (M) PART A Dec 13, 2010 PART A [id number] [phone] JOEL PERRY PATIENT MEDICARE (WNR) MEDICARE (M) PART A Dec 13, 2010 PART A [id number] JOEL PERRY PATIENT [facility] Aug 14, 2013 [id number] JOEL PERRY PATIENT Selected Encounter This section includes the information on record at [place] for the Encounter. Date/Time Encounter Type Encounter Description Reason Pro vider Source Nov 20, 2023 02:03 PM Outpatient Encounter ADMIN PAT ACTIVTIES (MASNONCT) IHE Encounter Template Text not used by [place] Plan of Treatment: Future Appointments (+ 6 months) and Future Tests (+/- 45 days) The Plan of Treatment section includes future care activities for the patient from all [place] treatmentfacilities. This section includes future appointments and future orders which are active, pending or scheduled. Future Appointments This section includes appointments that were scheduled to occur 6 months from the date of the Encounter, up to a maximum of 20 appointments. The data comes from all [place] treatment facilities. Appointment Date/Time Appointment Type Appointme nt Facility Name Dec 11, 2023 02:00 PM [facility] February 10, 2024 09:00 AM [facility] Encounter Notes: All associated encounter notes This section contains the clinical notes associated to the Encounter. 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 (60MINS) WITH CWM/SO/PACT EIGHT PROVIDER ON 12/11/2023 AT 14:00. THIS CLEAT FEEDER HAD REQUESTED RECORDS FROM DR.STEPHEN JIA [facility],DR.OLIVIA JHON MD/[facility] CARDIOLOGY, OV NOTES FROM NONA BERUMEN MALTZMA N, [facility]. ALSO REQUESTED NOTES FROM DR.MICHAEL EFRAÍN MD/[facility]. /es/ DEMARCO DIAZ ADVANCED TERRITORY SALES PROFESSIONAL Signed: 11/25/2023 14:26 Receipt Acknowledged By: 11/25/2023 14:31 /es/ ROSA ELENA LEVI RN-BC REGISTERED NURSE 11/25/2023 14:30 /es/ WILIAN KAPOOR LPN Licensed Practical Nurse === --- Original Document --- 11/20/23 CCC: SCHEDULING ADMINISTRATION: Patient Demographics Patient Name: ANDRES PERRY Patient Primary Phone: [phone] Patient Primary [address]: [address] [place] [address] Patient : 1945 Patient Age: 78 Current Location: [place] Call Back Number: [phone] Caller/Recipient Relation to Patient: Self Scheduling Cannot Complete Scheduling Action Reason: No Appointment Available Requested Service(s): Primary Care Scheduling Note Reason: Cannot Complete Appointment Request Open Request: None of the above Administrative Administrative Note Reason: Returned Call Administrative Note Comments: Patient is requesting primary care provider in [facility] . Requesting a call back to see if he eligible . /es/ DIMPLE GLORIA CCC AMSA Signed: 11/20/2023 14:04 Receipt Acknowledged By: 11/22/2023 17:28 /es/ LEIGH GOOD MSA GRINDER GEAR, [facility] 11/20/2023 16:22 /es/ ENE US GRINDER GEAR AMSA 11/20/2023 15:16 /es/ CHITO MAYS GRINDER GEAR TERRITORY SALES PROFESSIONAL 11/20/2023 ADDENDUM STATUS: COMPLETED AMSA/RN please call to schedule for a 60 min new patient appointment with PACT 8 within 20 days, virtual or face to face to meet new pt scheduling guidelines. 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 NO ANSWER,COULD NOT LEAVE A MESSAGE. /nacho DIAZ ADVANCED TERRITORY SALES PROFESSIONAL Signed: 11/20/2023 16:03 EBONY DIAZ [place] [facility] [place] [facility] Nov 20, 2023 03:16 PM ADDENDUM: LOCAL TITLE: Addendum STANDARD TITLE: ADDENDUM DATE OF NOTE: NOV 20, 2023@15:16:55 ENTRY DATE: NOV 20, 2023@15:16:56 AUTHOR: CHITO MAYS EXP COSIGNER: URGENCY: STATUS: COMPLETED AMSA/RN please call to schedule for a 60 min new patient appointment with PACT 8 within 20 days, virtual or face to face to meet new pt scheduling guidelines. Appointment needs to be scheduled on or before Nov PATIENT PHONE - No data available F/U RTC should go to SO/PACT 8 /alta/ CHITO MAYS GRINDER GEAR TERRITORY SALES PROFESSIONAL Signed: 11/20/2023 15:17 Receipt Acknowledged By: 11/25/2023 14:16 /nacho DIAZ ADVANCED TERRITORY SALES PROFESSIONAL === --- Original Document --- 03/08/24 CCC: SCHEDULING ADMINISTRATION: Patient Demographics Patient Name: ANDRES PERRY Patient Primary Phone: [phone] Patient Primary Address: [place] [address] Patient : 1945 Patient Age: 78 Current Location: [place] Call Back Number: [phone] Caller/Recipient Relation to Patient: Self Scheduling Cannot Complete Scheduling Action Reason: No Appointment Available Requested Service(s): Primary Care Scheduling Note Reason: Cannot Complete Appointment Request Open Request: None of the above Administrative Administrative Note Reason: Returned Call Administrative Note Comments: Patient is requesting primary care provider in [facility] . Requesting a call back to see if he eligible . 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 NO ANSWER,COULD NOT LEAVE A MESSAGE. /alta/ DEMARCO DIAZ ADVANCED TERRITORY SALES PROFESSIONAL Signed: 11/20/2023 16:03 11/25/2023 ADDENDUM STATUS: UNSIGNED You may not VIEW this UNSIGNED Addendum. CHITO MAYS [place] [facility] [place] [facility] Nov 20, 2023 02:03 PM ADMINISTRATIVE NOTE: LOCAL TITLE: CCC: SCHEDULING ADMINISTRATION STANDARD TITLE: ADMINISTRATIVE NOTE DATE OF NOTE: NOV 20, 2023@14:03:52 ENTRY DATE: NOV 20, 2023@14:03:52 AUTHOR: DIMPLE MENDES EXP COSIGNER: URGENCY: STATUS: COMPLETED CCC: SCHEDULING ADMINISTRATION Has ADDENDA Patient Demographics Patient Name: ANDRES PERRY Patient Primary Phone: [phone] Patient Primary Address: [place] [address] Patient : 1945 Patient Age: 78 Current Location: [place] Call Back Number: [phone] Caller/Recipient Relation to Patient: Self Scheduling Cannot Complete Scheduling Action Reason: No Appointment Available Requested Service(s): Primary Care Scheduling Note Reason: Cannot Complete Appointment Request Open Request: None of the above Administrative Administrative Note Reason: Returned Call Administrative Note Comments: Patient is requesting primary care provider in [facility] . Requesting a call back to see if he eligible . /es/ DIMPLE RAZON1 [facility] AMSA Signed: 11/20/2023 14:04 Receipt Acknowledged By: 11/22/2023 17:28 /es/ LEIGH GOOD MSA GRINDER GEAR, [facility] 11/20/2023 16:22 /es/ ENE US GRINDER GEAR AMSA 11/20/2023 15:16 /es/ CHITO MAYS GRINDER GEAR TERRITORY SALES PROFESSIONAL 11/20/2023 ADDENDUM STATUS: COMPLETED AMSA/RN please call to schedule for a 60 min new patient appointment with PACT 8 within 20 days, virtual or face to face to meet new pt scheduling guidelines. Appointment needs to be scheduled on or before Nov PATIENT PHONE - No data available F/U RTC should go to SO/PACT 8 /atla/ CHITO MAYS GRINDER GEAR TERRITORY SALES PROFESSIONAL Signed: 11/20/2023 15:17 Receipt Acknowledged By: 11/25/2023 14:16 /es/ DEMARCO DIAZ ADVANCED TERRITORY SALES PROFESSIONAL 11/20/2023 ADDENDUM STATUS: COMPLETED THIS CLEAT FEEDER HAD CALLED TO SCHEDULE F2F NEW PATIENT APPT.(60MINS) WITH CWM/SO/PACT EIGHT PROVIDER. NO ANSWER,COULD NOT LEAVE A MESSAGE. /es/ DEMARCO IDAZ ADVANCED TERRITORY SALES PROFESSIONAL Signed: 11/20/2023 16:03 11/25/2023 ADDENDUM STATUS: COMPLETED THIS CLEAT FEEDER HAD SPOKEN TO ON 11/23/2023 TO SCHEDULE NEW PATIENT APPT. (60MINS) WITH CWM/SO/PACT EIGHT PROVIDER ON 12/11/2023 AT 14:00. THIS CLEAT FEEDER HAD REQUESTED RECORDS FROM DR.STEPH[facility]IA [facility],DR.OLIVIA JHON MD/[facility] CARDIOLOGY, OV NOTES FROM NONA BERUMEN MALTZMA N, [facility]. ALSO REQUESTED NOTES FROM DR.MICHAEL EFRAÍN MD/[facility]. // DEMARCO DIAZ ADVANCED TERRITORY SALES PROFESSIONAL Signed: 11/25/2023 14:26 Receipt Acknowledged By: * AWAITING SIGNATURE * SREEKANTH BELLO * AWAITING SIGNATURE * WILIAN KAPOOR ANDREA M [facility]
--- OUTSIDE RECORDS SUMMARY | 2024-09-27 16:46 | XMS_ITS | Encounter Summary ---
Author Name [facility] [facility] [place] Address [address] [place] [address] Care Team Providers Care Bi Report Developer Name Role Phone EYAD SIMON Primary Care [...] SUPP Aug 14, 2013 MEDICAR E SUPP [id number] JOEL PERRY STABARBARA PATIENT MEDICARE (WNR) MEDICARE (M) PART B Aug 14, 2012 PART B [id number] JOEL PERRY STAVE PATIENT MEDICARE (WNR) MEDICARE (M) PART B Aug 14, 2012 PART B [id number] JOEL PERRY STAVE PATIENT MEDICARE (WNR) MEDICARE () PART A Dec 13, 2010 PART A [id number] [phone] [id number] JOEL PERRY STAVE PATIENT MEDICARE (WNR) MEDICARE () PART A Dec 13, 2010 PART A [id number] JOEL PERRY PATIENT MEDICARE (WNR) MEDICARE (M) PART A Dec 13, 2010 PART A [id number] [phone] JOEL PERRY PATIENT [facility] CARTER HERNÁNDEZ Aug 14, 2013 [id number] JOEL PERRY PATIENT Selected Encounter This section includes the information on record at [place] for the Encounter. Date/Time Encounter Type Encounter Description Reason Provider Source Dec 21, 2023 09:41 AM QNHP OL DIG ASSMT&MGMT 5-10 CLINICAL PHARMACY ICD-10-CM Z04.89 Encounter for examination and observation for oth reasons AAKASH SWEET Encounter Template Text not used by [place] Assessments - Encounter Diagnoses This section includes the primary and secondary diagnoses documented for the Encounter. Date/Time Primary/Secondary Diagnosis Diagnosis Name Provider Source Dec 21, 2023 09:47 AM PRIMARY Encounter for examination and observation for oth reasons AAKASH SWEET [facility] Plan of Treatment: Future Appointments (+ 6 months) and Future Tests (+/- 45 days) The Plan of Treatment section includes future care activities for the patient from all [place] treatmentfacilities. This section includes future appointments and future orders which are active, pending or scheduled. Future Appointments This section includes appointments that were scheduled to occur 6 months from the date of the Encounter, up to a maximum of 20 appointments. The data comes from all [place] treatment facilities. Appointment Date/Time Appointment Type Appointme nt Facility Name February 10, 2024 09:00 AM AMBULATORY - MEDICINE [facility] Encounter Notes: All associated encounter notes This section contains the clinical notes associated to the Encounter. Date/Time Encounter Note(s) Provider Source Dec 21, 2023 09:41 AM PHARMACY MEDICATIO N MGT CONSULT: LOCAL TITLE: CONSULT REPORT/ANTICOAGULATION CLINIC STANDARD TITLE: PHARMACY MEDICATION MGT CONSULT DATE OF NOTE: DEC 21, 2023@09:41 ENTRY DATE: DEC 21, 2023@09:42:11 AUTHOR: CHARLOTTE SWEET EXP COSIGNER: URGENCY: STATUS: COMPLETED CONSULT REPORT/ANTICOAGULATION CLINIC Has ADDENDA ANTICOAGULATION DOAC MONITORING NOTE SUBJECTIVE: Patient identified through the DOAC population Management Tool based on the following criteria: [ ] Dosing Issue [ ] Critical Drug Interaction [ ] Cancer Treatment [ ] Active NSAID [ ] Labs Overdue [ ] Prosthetic Valve Replacement [ ] Notable Lab Value [ ] Overdue for Refill [ X ] Other: Pt transferring apixaban therapy to [facility] from [facility] Comments: Pt to begin receiving apixaban from [facility] --------- OBJECTIVE: Indication for anticoagulation: [ X ] Atrial fibrilation [ ] Atrial flutter [ ] VTE (DVT or PE) [ ] Post-op DVT prophylaxis [ ] Other: Most recent lab values include the following: BLOOD Apr 15 Apr 08 Reference 2022 2021 09:20 09:30 Units Ranges WBC 4.3 L 3.8 L x1000/uL 4.5 - 11 RBC 5.31 4.89 million/uL4.5 - 5.9 HGB 15.9 14.7 g/dL 13.5 - 17.5 HCT 48.4 43.9 % 41 - 53 MCV 91.1 89.8 fL 80 - 100 MCH 30.0 30.0 pg 26 - 34 MCHC 33.0 33.4 g/dL 31 - 37 RDW 14.7 H 13.5 % 12 - 14.6 PLT 148 L 166 x1000/uL 150 - 440 SERUM Apr 15 Apr 08 Reference 2022 2021 09:20 09:30 Units Ranges NA 139 143 mEq/L 135 - 145 K 4.0 4.2 mEq/L 3.5 - 5.5 CL 106 107 mEq/L 98 - 107 CO2 24 24 mEq/L 21 - 29 CREAT 1.2 1.0 mg/dL .7 - 1.4 EGFR 62 L 78 L mL/min/BSARef: >=90 BUN 26 H 21 H mg/dL 5 - 20 GLUCOSE 104 98 mg/dL 60 - 105 T BILI 1.8 H 0.9 mg/dL Ref: <1.2 ALK SARAHI 67 69 U/L 40 - 125 AST 27 21 U/L 15 - 45 ALT 19 16 U/L 5 - 40 HEIGHT: 68 in [172.7 cm] (12/11/2023 14:02) WEIGHT: 171 lb [77.56 kg] (12/11/2023 14:02) BMI: BMI: 26.1 CRCL IBW: Creat not found CRCL ACT: No Creat CRCL ADJ: <Not Found> --------- ASSESSMENT: Pt has been stable on apixaban through [facility] and is transitioning care to [facility]. Action required? [ ] Yes [ X ] No Comments: Pt has been on apixaban therapy for quite some time (non[facility]) with [facility] to [facility] dispensing 2018. DC apixaban education completed 01/2019 (pharmacy notes reviewed). Pt transitioned to passive monitoring by [facility] with last labs completed 04/2023 (due again 04/2024). Pt with labs pending by DC CW PCP. Apixaban dose is appropriate. No significant drug-drug interactions noted. --------- PLAN: [ ] No action required, dismiss flag [ X ] Will intervene: [ ] Patient education via phone/letter [ ] Schedule phone/[id number] follow up [ ] Lab ordered [ ] Discontinue interacting medication [ ] Discontinue DOAC [ ] Change to alternative DOAC [ ] Change DOAC dose [ ] Notify PCP [ ] Consult cardiology/hematology [ X ] Other: Rx to be dispensed as written; pt to be passively monitored by DC CWM Time spent: 10 mins /alta/ Charlotte Sweet PharmD, [facility] Clinical Plating Tank Operator Apprentice Signed: 12/21/2023 09:47 Receipt Acknowledged By: 12/21/2023 09:49 /alta/ CHACORTA CEBALLOS CPHT Clinical Financial Services Auditor 12/21/2023 ADDENDUM STATUS: COMPLETED Correction to note: CRCL IBW: 49.9mL/min CRCL ACT: 56.1mL/min CRCL ADJ: 52.4mL/min /nacho Sweet PharmD, [facility] Clinical Plating Tank Operator Apprentice Signed: 12/21/2023 09:50 [facility] SWEETFATOU [facility]
--- OUTSIDE RECORDS SUMMARY | 2024-09-27 16:46 | XMS_ITS | Encounter Summary ---
Author Name [facility] [facility] Address [address] [place] [address] Care Team Providers Care Practical Nursing Instructor Name Role Phone EYAD SIMON Primary Care [...] SUPP Aug 14, 2013 MEDICAR E SUPP [id number] P[address] STAVE PATIENT MEDICARE (WNR) MEDICARE (M) PART B Aug 14, 2012 PART B [id number] [phone] PERRY,JOEL STAVE PATIENT MEDICARE (WNR) MEDICARE (M) PART B Aug 14, 2012 PART B [id number] JOEL PERRY STAVE PATIENT MEDICARE (WNR) MEDICARE (M) PART A Dec 13, 2010 PART A [id number] [phone] [id number] PERRYJOEL STAVE PATIENT MEDICARE (WNR) MEDICARE (M) PART A Dec 13, 2010 PART A [id number] JOEL PERRY PATIENT MEDICARE (WNR) MEDICARE (M) PART A Dec 13, 2010 PART A [id number] JOEL PERRY PATIENT [facility] HERN[facility]NDEZ Aug 14, 2013 [id number] JOEL PERRY PATIENT Selected Encounter This section includes the information on record at [place] for the Encounter. Date/Time Encounter Type Encounter Description Reason Pro vider Source Feb 22, 2024 10:10 AM Outpatient Encounter ADMIN PAT ACTIVTIES (MASNONCT) [facility] Encounter Template Text not used by [place] Plan of Treatment: Future Appointments (+ 6 months) and Future Tests (+/- 45 days) The Plan of Treatment section includes future care activities for the patient from all [place] treatmentfacilities. This section includes future appointments and future orders which are active, pending or scheduled. Future Appointments This section includes appointments that were scheduled to occur 6 months from the date of the Encounter, up to a maximum of 20 appointments. The data comes from all [place] treatment facilities. Appointment Date/Time Appointment Type Appointme nt Facility Name Aug 03, 2024 01:00 PM AMB[facility]AT[facility] Lab Results: +/- 30 days of the encounter This section includes the Chemistry and Hematology Lab Results on record with [place] for the patient. Radiology Reports and Pathology Reports are provided separately, in subsequent sections. Lab Results This section contains the Chemistry/Hematology Results that were resulted 30 days before or 30 daysafter the date of the Encounter. Date/Time Source Result Type Result - Unit Interpretation Reference Range Comment February 04, 2024 08:48 AM [facility] PT & INR (COUMADIN) Specimen Type: PLASMA No comment entered. Ordering Provider: EYAD SIMON Report Released Date/Time: Dec 18, 2023 08:42 AM Reporting Lab: [facility] [address] [facility] [address] Performing Lab: [address] [address] INR 1.7 PROTIME 18.9 s H 10.0-13.1 February 04, 2024 08:48 AM [facility] TSH Specimen Type: SERUM No comment entered. Ordering Provider: CHANDANA SORIANO Report Released Date/Time: January 28, 2024 08:49 AM Reporting [facility] [address] [address] Performing Lab: [facility] [address] TSH 1.80 u[IU]/mL 0.35-5.00 February 04, 2024 08:48 AM [facility] BASIC METABOLIC PANEL (fasting) Specime n Type: SERUM No comment entered. Ordering Provider: CHANDANA SORIANO Report Released Date/Time: January 28, 2024 08:49 AM Reporting Lab: [facility] [address] [address] Performing Lab: [facility] [address] UREA NITROGEN 45 mg/dL H 7-25 GLUCOSE 105 mg/dL H 65-100 SODIUM 138 mmol/L 135-145 POTASSIUM 3.8 mmol/L 3.5-5.0 CHLORIDE 108 mmol/L 100-110 CO2 23 meq/L 20-30 CREATININE, Serum 1.49 mg/dL H 0.50-1.40 eGFR(CKD-EPI 2020) 48 mL/min L >60 February 04, 2024 08:48 AM [facility] LIPID PANEL FASTING Specimen Type: SERUM No comment entered. Ordering Provider: CHANDANA SORIANO Report Released Date/Time: January 28, 2024 08:49 AM Reporting Lab: [facility] [address] [address] Performing Lab: [facility] [address] CHOLESTEROL 105 mg/dL TRIGLYCERIDE 68 mg/dL 0-150 LDL calculated 58 mg/dL 0-129 CHOL/HDL 3.2 HDL CHOLESTEROL 33 mg/dL L 40-60 February 04, 2024 08:48 AM [facility] LIVER FUNCTION Specimen Type: SERUM No comment entered. Ordering Provider: CHANDANA SORIANO Report Released Date/Time: January 28, 2024 08:49 AM Reporting Lab: [facility] [address] [address] Performing Lab: [facility] [address] [facility] [address] PROTEIN,TOTAL 6.3 g/dL 6.0-8.3 ALBUMIN 3.7 g/dL 3.5-5.0 ALKALINE PHOSPHATASE 69 U/L 40-150 AST 18 U/L 5-34 ALT 18 U/L BILIRUBIN, TOTAL 0.9 mg/dL 0.2-1.2 February 04, 2024 08:48 AM [facility] CBC AND DIFF (AUTO) Specimen Type: BLOOD No comment entered. Ordering Provider: CHANDANA SORIANO Report Released Date/Time: January 28, 2024 08:49 AM Reporting Lab: [address] [address] Performing Lab: [address] [address] WBC 4.09 10*3/uL L 4.50-11.00 RBC 4.90 10*6/uL 4.23-5.66 HGB 14.8 g/dL 12.8-17 HCT 45.1 39.2-50.4 MCV 92.0 fL 82-99 MCHC 32.8 g/dL 30.8-35.1 PLT 131 10*3/uL L 140-360 RDW-CV 13.4 12.0-16.0 Arroyo, Abs 0.54 10*3/uL 0.30-1.10 MCH 30.2 pg 26.2-32.6 Neut % 36.2 L 43.7-75.8 Lymph % 46.5 H 14.0-42.3 Arroyo % 13.2 5.1-13.7 Eos % 2.9 0.4-6.8 Baso % 1.2 0.1-2.0 Neut, Abs 1.48 10*3/uL L 2.20-7.60 Lymph, Abs 1.90 10*3/uL 1.00-3.20 Eos, Abs 0.12 10*3/uL 0.03-0.44 Baso, Abs 0.05 10*3/uL 0.01-0.13 Immature Gran % 0.0 0.0-0.7 Immature Gran, Abs 0.00 10*3/uL 0.00-0.06 February 04, 2024 08:48 AM [facility] HEMOGLOBIN A1C PANEL Specimen Type: BLOOD Comment: [...] January 28, 2024 08:49 AM Reporting Lab: [facility] [address] [facility] [address] Performing Lab: [address] [address] HEMOGLOBIN A1C 5.8 H 4.0-5.6 Social History: Smoking Status (Most current) and Tobacco Use (All prior to encounter date) This section includes the most current, and the historical, smoking and tobacco- related health factors from the [place] facility where the Encounter took place. Current Smoking Status This section includes the most current smoking, or tobacco-related health factor, from the [place] facility where the Encounter took place. Date/Time Current Smoking Status Comment Facil ity Mar 25, 2022 03:39 PM VA-TOBACCO NEVER USED [facility] Encounter Notes: All associated encounter notes This section contains the clinical notes associated to the Encounter. Date/Time Encounter Note(s) Provider Source Feb 22, 2024 10:10 AM PRIMARY CARE ADMIN ISTRATIVE NOTE: LOCAL TITLE: HISTORICAL NOTE STANDARD TITLE: PRIMARY CARE ADMINISTRATIVE NOTE DATE OF NOTE: FEB 22, 2024@10:10 ENTRY DATE: FEB 22, 2024@10:10:36 AUTHOR: CARLOS COLÓN EXP COSIGNER: URGENCY: STATUS: COMPLETED The relocation to station [facility] (#[id number]) for the patient ANDRES PERRY has completed. The patient must be unassigned from all PACT assignments at all stations other than [facility] (#[id number]) . /alta/ CARLOS COLÓN PCMM Coordinator Signed: 02/22/2024 10:10 CARLOS COLÓN [facility]
--- OUTSIDE RECORDS SUMMARY | 2024-09-27 16:46 | XMS_ITS | Encounter Summary ---
Author Name [facility] [place] Address [address] [place] [id number] Care Team Providers Care Manager Product Name Role Phone EYAD SIMON Primary Care [...] SUPP Aug 14, 2013 MEDICAR E SUPP [id number] JOEL PERRY STAVE PATIENT MEDICARE (WNR) MEDICARE (M) PART B Aug 14, 2012 PART B [id number] [phone] JOEL PERRY STAVE PATIENT MEDICARE (WNR) MEDICARE (M) PART B Aug 14, 2012 PART B [id number] JOEL PERRY STAVE PATIENT MEDICARE (WNR) MEDICARE (M) PART A Dec 13, 2010 PART A [id number] JOEL PERRY STAVE PATIENT MEDICARE (WNR) MEDICARE (M) PART A Dec 13, 2010 PART A [id number] JOEL PERRY PATIENT MEDICARE (WNR) MEDICARE (M) PART A Dec 13, 2010 PART A [id number] [phone] JOEL PERRY PATIENT [facility] CARTER HERNÁNDEZ Aug 14, 2013 [id number] JOEL PERRY PATIENT Selected Encounter This section includes the information on record at [place] for the Encounter. Date/Time Encounter Type Encounter Description Reason Provider Source February 10, 2024 09:00 AM OFFICE O/P EST MOD 30 MIN PRIMARY CARE/MEDICINE ICD-10-CM R73.03 Prediabetes CHANDANA SORIANO Elijah Encounter Template Text not used by [place] Assessments - Encounter Diagnoses This section includes the primary and secondary diagnoses documented for the Encounter. Date/Time Primary/Secondary Diagnosis Diagnosis Name Provider Source February 10, 2024 09:39 AM PRIMARY Prediabetes ANALYCHARMAINECHANDANA Jha [facility] February 10, 2024 09:39 AM SECONDARY Chronic kidney disease, unspecified CHANDANA SORIANO [facility] February 10, 2024 09:39 AM SECONDARY Essential (primary) hypertension CHANDANA SORIANO [facility] February 10, 2024 09:39 AM SECONDARY Hyperlipidemia, unspecified CHANDANA SORIANO [facility] February 10, 2024 09:39 AM SECONDARY emt intermediate (current) use of anticoagulants CHANDANA SORIANO [facility] February 10, 2024 09:39 AM SECONDARY Unspecified atrial fibrillation ANALYCHARMAINECHANDANA Jha [facility] Plan of Treatment: Future Appointments (+ 6 months) and Future Tests (+/- 45 days) The Plan of Treatment section includes future care activities for the patient from all [place] treatmentfacilities. This section includes future appointments and future orders which are active, pending or scheduled. Future Appointments This section includes appointments that were scheduled to occur 6 months from the date of the Encounter, up to a maximum of 20 appointments. The data comes from all [place] treatment facilities. Appointment Date/Time Appointment Type Appointme nt Facility Name Aug 03, 2024 01:00 PM AMBULATORY - MEDICINE [facility] Lab Results: +/- 30 days of the encounter This section includes the Chemistry and Hematology Lab Results on record with [place] for the patient. Radiology Reports and Pathology Reports are provided separately, in subsequent sections. Lab Results This section contains the Chemistry/Hematology Results that were resulted 30 days before or 30 daysafter the date of the Encounter. Date/Time Source Result Type Result - Unit Interpretation Reference Range Comment February 04, 2024 08:48 AM [facility] PT & INR ([facility]OU[facility]ADIN) Specimen Type: PLASMA No comment entered. Ordering Provider: EYAD SIMON Report Released Date/Time: Dec 18, 2023 08:42 AM Reporting Lab: [facility] [address] [address] Performing Lab: [address] [address] INR 1.7 PROTIME 18.9 s H 10.0-13.1 February 04, 2024 08:48 AM [facility] TSH Specimen Type: SERUM No comment entered. Ordering Provider: CHANDANA SORIANO Report Released Date/Time: January 28, 2024 08:49 AM Reporting Lab: [address] [address] Performing Lab: [facility] [address] [address] TSH 1.80 u[IU]/mL 0.35-5.00 February 04, 2024 08:48 AM [facility] BASIC METABOLIC PANEL (fasting) Specime n Type: SERUM No comment entered. Ordering Provider: CHANDANA SORIANO Report Released Date/Time: January 28, 2024 08:49 AM Reporting Lab: [address] [address] Performing Lab: [facility] [address] [address] UREA NITROGEN 45 mg/dL H 7-25 GLUCOSE 105 mg/dL H 65-100 SODIUM 138 mmol/L 135-145 POTASSIUM 3.8 mmol/L 3.5-5.0 CHLORIDE 108 mmol/L 100-110 CO2 23 meq/L 20-30 CREATININE, Serum 1.49 mg/dL H 0.50-1.40 eGFR(CKD-EPI 2020) 48 mL/min L >60 February 04, 2024 08:48 AM [facility] LIPID PANEL FASTING Specimen Type: SERUM No comment entered. Ordering Provider: CHANDANA SORIANO Report Released Date/Time: January 28, 2024 08:49 AM Reporting Lab: [address] [address] Performing Lab: [address] [address] CHOLESTEROL 105 mg/dL TRIGLYCERIDE 68 mg/dL 0-150 LDL calculated 58 mg/dL 0-129 CHOL/HDL 3.2 HDL CHOLESTEROL 33 mg/dL L 40-60 February 04, 2024 08:48 AM [facility] LIVER FUNCTION Specimen Type: SERUM No comment entered. Ordering Provider: CHANDANA SORIANO Report Released Date/Time: January 28, 2024 08:49 AM Reporting Lab: [address] [address] Performing Lab: [address] [address] PROTEIN,TOTAL 6.3 g/dL 6.0-8.3 ALBUMIN 3.7 g/dL 3.5-5.0 ALKALINE PHOSPHATASE 69 U/L 40-150 AST 18 U/L 5-34 ALT 18 U/L BILIRUBIN, TOTAL 0.9 mg/dL 0.2-1.2 February 04, 2024 08:48 AM [facility] CBC AND DIFF (AUTO) Specimen Type: BLOOD No comment entered. Ordering Provider: CHANDANA SORIANO Report Released Date/Time: January 28, 2024 08:49 AM Reporting Lab: [address] [address] Performing Lab: [address] [address] WBC 4.09 10*3/uL L 4.50-11.00 RBC 4.90 10*6/uL 4.23-5.66 HGB 14.8 g/dL 12.8-17 HCT 45.1 39.2-50.4 MCV 92.0 fL 82-99 MCHC 32.8 g/dL 30.8-35.1 PLT 131 10*3/uL L 140-360 RDW-CV 13.4 12.0-16.0 Rincon, Abs 0.54 10*3/uL 0.30-1.10 MCH 30.2 pg 26.2-32.6 Neut % 36.2 L 43.7-75.8 Lymph % 46.5 H 14.0-42.3 Rincon % 13.2 5.1-13.7 Eos % 2.9 0.4-6.8 Baso % 1.2 0.1-2.0 Neut, Abs 1.48 10*3/uL L 2.20-7.60 Lymph, Abs 1.90 10*3/uL 1.00-3.20 Eos, Abs 0.12 10*3/uL 0.03-0.44 Baso, Abs 0.05 10*3/uL 0.01-0.13 Immature Gran % 0.0 0.0-0.7 Immature Gran, Abs 0.00 10*3/uL 0.00-0.06 February 04, 2024 08:48 AM [facility] HEMOGLOBIN A1C PANEL Specimen Type: BLOOD Comment: [...] January 28, 2024 08:49 AM Reporting Lab: [address] [address] Performing Lab: [address] [address] HEMOGLOBIN A1C 5.8 H 4.0-5.6 Vital Signs: All taken on the encounter date This section contains inpatient and outpatient Vital Signs collected on the date of the Encounter. Date/Time Temperature Pulse Blood Pressure Respiratory Rate SP02 Pain Height Weight Body Mass Index Source February 10, 2024 09:07 AM 97.7 70 119/76 18 98 167 25 [facility] IELD Social History: Smoking Status (Most current) and Tobacco Use (All prior to encounter date) This section includes the most current, and the historical, smoking and tobacco- related health factors from the [place] facility where the Encounter took place. Current Smoking Status This section includes the most current smoking, or tobacco-related health factor, from the [place] facility where the Encounter took place. Date/Time Current Smoking Status Comment Nile rushing Dec 11, 2023 02:00 PM VA-TOBACCO NEVER USED [facility] Encounter Notes: All associated encounter notes This section contains the clinical notes associated to the Encounter. Date/Time Encounter Note(s) Provider Source February 10, 2024 09:07 AM PREVENTIVE MEDICIN E NURSING NOTE: LOCAL TITLE: CLINICAL REMINDERS/NURSING STANDARD TITLE: PREVENTIVE MEDICINE NURSING NOTE DATE OF NOTE: FEBRUARY 10, 2024@09:07 ENTRY DATE: FEBRUARY 10, 2024@09:07:52 AUTHOR: WILIAN KAPOOR EXP COSIGNER: URGENCY: STATUS: COMPLETED COVID-19 Immunization: Refused Moderna Monovalent COVID-19 vaccine Immunization: COVID-19 (MODERNA), MRNA, LNP-S, PF, 50 MCG/0.5 ML (AGES 12+ YEARS) Refusal Reason: PATIENT DECISION Patient refuses all immunization(s) in the COVID-19 group Date Documented: 02/10/24 09:08 === PROVIDER TO ADDRESS Hep,C and HIV AND REST OF THE REMINDERS== /es/ WILIAN KAPOOR LPN Licensed Practical Nurse Signed: 02/10/2024 09:08 WILIAN KAPOOR SAYDA February 10, 2024 09:05 AM PHYSICIAN NOTE: LOCAL TITLE: MD NOTE STANDARD TITLE: PHYSICIAN NOTE DATE OF NOTE: FEBRUARY 10, 2024@09:05 ENTRY DATE: FEBRUARY 10, 2024@09:05:09 AUTHOR: CHANDANA SORIANO EXP COSIGNER: URGENCY: STATUS: COMPLETED HISTORY OF PRESENT ILLNESS: ANDRES PERRY, is a 79 yo MALE Wesley, who presents at the [facility] for follow up visit for chronic medical conditions. labs- recenthly done and results were d/w paielsie today Active problems - Computerized Problem List is the source for the followin-prediabetes 2-chronic kidney disease 3-mild leukopenia and thrombocytopenia 4-HLP 5-HTN 6-asthma -comanaged The following VA and Non-VA meds were reconciled with patient: Active Outpatient Medications (including Supplies): Issue Date Status Last Fill Active Outpatient Medications Refills Expiration 1) ALBUTEROL 90MCG (CFC-F) 200D ORAL INHL ACTIVE Issu:12-11-23 Qty: 3 for 90 days Sig: INHALE 1 PUFF Refills: 0 Last:12-14-23 BY MOUTH THREE TIMES DAILY NEEDED Expr:03-10-24 FOR BRONCHOSPASM 2) APIXABAN 5MG TAB Qty: 180 for 90 days ACTIVE Issu:12-11-23 Sig: TAKE ONE TABLET BY MOUTH EVERY 12 Refills: 0 Last:12-21-23 HOURS ATRIAL FIBRILATION Expr:03-10-24 3) ATORVASTATIN CALCIUM 80MG TAB Qty: 90 ACTIVE Issu:12-11-23 for 90 days Sig: TAKE ONE TABLET BY Refills: 0 Last:12-14-23 MOUTH AT BEDTIME Expr:03-10-24 4) BETAMETHASONE DIPROPIONATE 0.05% OINT ACTIVE Issu:12-11-23 Qty: 4 for 90 days Sig: APPLY THIN Refills: 0 Last:12-14-23 LAYER TOPICALLY ONCE DAILY NEEDED Expr:03-10-24 FOR ITCHING/RASH 5) CHOLECALCIF 50MCG (D3-2,000UNIT) TAB ACTIVE Issu:12-11-23 Qty: 100 for 90 days Sig: TAKE ONE Refills: 0 Last:12-14-23 TABLET BY MOUTH ONCE DAILY FOR VITAMIN Expr:03-10-24 SUPPLEMENTATION 6) FLUTICAS 100/SALMETEROL 50 INHL DISK 60 ACTIVE Issu:12-11-23 Qty: 3 for 90 days Sig: INHALE 1 PUFF Refills: 0 Last:12-14-23 BY MOUTH TWICE DAILY FOR BRONCHOSPASM Expr:03-10-24 PREVENTION WITH COPD - RINSE MOUTH AFTER USE 7) FLUTICASONE PROP 50MCG 120D NASAL INHL ACTIVE Issu:12-11-23 Qty: 3 for 90 days Sig: INSTILL 2 Refills: 0 Last:12-14-23 SPRAYS INTO EACH NOSTRIL ONCE DAILY Expr:03-10-24 NEEDED FOR NASAL IRRITATION/INFLAMMATION 8) HCTZ 25/TRIAMTERENE 37.5MG TAB Qty: 90 ACTIVE Issu:12-11-23 for 90 days Sig: TAKE 1 TABLET BY Refills: 0 Last:12-14-23 MOUTH ONCE DAILY FOR HIGH BLOOD Expr:03-10-24 PRESSURE 9) LOSARTAN 100MG TAB Qty: 90 for 90 days ACTIVE Issu:12-11-23 Sig: TAKE ONE TABLET BY MOUTH ONCE Refills: 0 Last:12-14-23 DAILY FOR BLOOD PRESSURE/HEART Expr:03-10-24 10) METOPROLOL TARTRATE 100MG TAB Qty: 180 ACTIVE Issu:12-11-23 for 90 days Sig: TAKE ONE TABLET BY Refills: 0 Last:12-14-23 MOUTH TWICE DAILY FOR BLOOD Expr:03-10-24 PRESSURE/HEART ALLERGIES: ========= [facility], [facility], [facility] LAB HISTORY: Fasting glucose level 105 and hemoglobin A1c 5.8 BUN 45 and creatinine 1.49 and GFR 48 The rest of BMP, LFTs, TSHnormal limits White count 4.09 and platelets 131; H&H normal limits HDL 33 and the rest of the lipid panelnormal PMH ========= HTN, Asthma, Atrial fibrilation, pollen allergies , CAD- Triple bypass, flu, amoebic dysentery, allergic rhinthis PSH ========= tripple bypass- 2014 appendectomy tonsilectomy SOCIAL HISTORY: with 2 children Smoking denies Drugs denies Alcohol denies HISTORY: 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 - [employer] 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 Jun TO Feb COMBAT SERVICE INDICATED: No REVIEW OF SYSTEMS: No fever, chills, fatigue No chest pain shortness of breath or palpitations No cough or wheezing No abdominal pain nausea or vomiting No dysuria No headaches or dizziness PHYSICAL EXAMINATION: WD/overweight seems to be in nonacute distress at the moment of examination S1-S2 positive, irregular irregularly LAURA, CTA bilateral Abdomen soft nontender to palpation No edema lower extremities AAO x3; ambulates without help ASSESSMENT/PLAN: 1-zztesyhndxd-azujvvr to decrease carbohydrates in diet and increase exercising to at least 150 minutes moderate activity weekly 2-chronic kidney disease-GFR of 48 He is on a combination of diuretics-after he developed bilateral ankle edema with amlodipine in the past He is off amlodipine at this time and he does not complain of any swelling in the ankles He admits of drinking around 1 L water a day and I advised to increase to 2 L We will going to repeat blood work in 3 months If BUN and creatinine are not improving going to decrease dose of hydrochlorothiazide/triamterene He states he urinates appropriate and he does not feel he is not able to empty his bladder with each urination 3-mild leukopenia and thrombocytopenia-continue to monitor for now Mild leukopeniachronic and improving Mild number cytopenianew without any bleeding signs 4-HLP-lipid panel at goal Advised to increase activity and keep healthy diet and continue current medications 1-LKW-hoazslko current medications and blood pressure controlled 2-esufjj-zxxs no signs of exacerbation continue current medications -comanaged FOLLOW UP: ========= RTC -3-month follow-up for prediabetes chronic kidney disease mild leukopenia and thrombocytopenia with fasting labs Today's documentation was made [...] call or come in to the [facility]. Medication Reconciliation: Outpatient: Has the patient been taking medications as documented in the EMLR? YES: The patient has been taking medications as documented in the EMLR. Essential Medication List for Review used to complete this medication reconciliation. INCLUDED IN THIS LIST: Alphabetical list of active outpatient prescriptions dispensed from this [facility] (local) and dispensed from another [place] or DoD facility (remote) as well as inpatient orders (local, pending and active), local clinic medications, locally documented non-VA medications, and local prescriptions that have or been discontinued in the past 90 days. - All changes in medications, including all [...] JLV. Allergies/ADRs (Tool #5) FACILITY ALLERGY/ADR -------- [facility] Med Recon NoGlossary (Tool #1) INCLUDED IN THIS LIST: Alphabetical list of active outpatient prescriptions dispensed from this VA (local) and dispensed from another [place] or DoD facility (remote) as well as inpatient orders (local pending and active), local clinic medications, locally documented non-VA medications, and local prescriptions that have or been discontinued in the past 90 days. Non-VA Meds Last Documented On: Data not found NOTE The display of VA prescriptions dispensed from another VA or DoD facility (remote) is limited to active outpatient prescription entries matched to National Drug File at the originating site and may not include some items such as investigational drugs, compounds, etc. NOT INCLUDED IN THIS LIST: Medications self-entered by the patient into personal health records (i.e. [employer]) are NOT included in this list. Non-VA medications documented outside this [place], remote inpatient orders (regardless of status) and remote clinic medications are NOT included in this list. The patient and provider must always discuss medications the patient is taking, regardless of where the medication was dispensed or obtained. OUTPT ALBUTEROL 90MCG (CFC-F) 200D ORAL INHL (Status = Active) INHALE 1 PUFF BY MOUTH THREE TIMES DAILY NEEDED FOR BRONCHOSPASM Rx# [id number] Last Released: 12/16/23 Qty/Days Supply: Rx Expiration Date: 03/10/24 Refills Remainin Indication: FOR BRONCHOSPASM OUTPT APIXABAN 5MG TAB (Status = Active) TAKE ONE TABLET BY MOUTH EVERY 12 HOURS ATRIAL FIBRILATION Rx# [id number] Last Released: 12/23/23 Qty/Days Supply: Rx Expiration Date: 03/10/24 Refills Remainin Indication: ATRIAL FIBRILATION Remote APIXABAN 5MG TAB TAKE ONE TABLET BY MOUTH TWICE A DAY TO PREVENT BLOOD CLOTS MUST OBTAIN UPDATED LAB WORK FOR FURTHER RENEWALS Last Filled: 09/21/23 (Active at [facility]) Rx Expiration Date: 03/18/24 Days Supply: 90 Remote ATORVASTATIN CA 80MG TAB TAKE ONE TABLET BY MOUTH AT BEDTIME FOR LOWERING CHOLESTEROL Last Filled: 10/09/23 (Active at [facility]) Rx Expiration Date: 04/16/24 Days Supply: 90 OUTPT ATORVASTATIN CALCIUM 80MG TAB (Status = Active) TAKE ONE TABLET BY MOUTH AT BEDTIME Rx# [id number] Last Released: 12/16/23 Qty/Days Supply: Rx Expiration Date: 03/10/24 Refills Remainin Indication: FOR HIGH CHOLESTEROL OUTPT BETAMETHASONE DIPROPIONATE 0.05% OINT (Status = Active) APPLY THIN LAYER TOPICALLY ONCE DAILY NEEDED FOR ITCHING/RASH Rx# [id number] Last Released: Qty/Days Supply: Rx Expiration Date: 03/10/24 Refills Remainin Indication: FOR ITCHING OUTPT CHOLECALCIF 50MCG (D3-2,000UNIT) TAB (Status = Active) TAKE ONE TABLET BY MOUTH ONCE DAILY FOR VITAMIN SUPPLEMENTATION Rx# [id number] Last Released: 12/16/23 Qty/Days Supply: Rx Expiration Date: 03/10/24 Refills Remainin Indication: FOR VITAMIN D DEFICIENCY OUTPT FLUTICAS 100/SALMETEROL 50 INHL DISK 60 (Status = Active) INHALE 1 PUFF BY MOUTH TWICE DAILY FOR BRONCHOSPASM PREVENTION WITH COPD - RINSE MOUTH AFTER USE Rx# [id number] Last Released: 12/16/23 Qty/Days Supply: Rx Expiration Date: 03/10/24 Refills Remainin Indication: FOR BRONCHOSPASM PREVENTION WITH COPD OUTPT FLUTICASONE PROP 50MCG 120D NASAL INHL (Status = Active) INSTILL 2 SPRAYS INTO EACH NOSTRIL ONCE DAILY NEEDED FOR NASAL IRRITATION/INFLAMMATION Rx# [id number] Last Released: 12/16/23 Qty/Days Supply: Rx Expiration Date: 03/10/24 Refills Remainin Indication: FOR NASAL IRRITATION/INFLAMMATION OUTPT HCTZ 25/TRIAMTERENE 37.5MG TAB (Status = Active) TAKE 1 TABLET BY MOUTH ONCE DAILY FOR HIGH BLOOD PRESSURE Rx# [id number] Last Released: 12/16/23 Qty/Days Supply: Rx Expiration Date: 03/10/24 Refills Remainin Indication: FOR HIGH BLOOD PRESSURE Remote HYDROCHLOROTHIAZIDE 25MG/TRIAMTERENE 37.5MG TAB TAKE 1 TABLET BY MOUTH EVERY DAY FOR BLOOD PRESSURE Last Filled: 09/21/23 (Active at [facility]) Rx Expiration Date: 04/22/24 Days Supply: 90 OUTPT LOSARTAN 100MG TAB (Status = Active) TAKE ONE TABLET BY MOUTH ONCE DAILY FOR BLOOD PRESSURE/HEART Rx# [id number] Last Released: 12/16/23 Qty/Days Supply: Rx Expiration Date: 03/10/24 Refills Remainin Indication: FOR HIGH BLOOD PRESSURE Remote LOSARTAN POTASSIUM 100MG TAB TAKE ONE TABLET BY MOUTH EVERY DAY FOR HEART AND BLOOD PRESSURE Last Filled: 09/21/23 (Active at [facility]) Rx Expiration Date: 04/22/24 Days Supply: 90 OUTPT METOPROLOL TARTRATE 100MG TAB (Status = Active) TAKE ONE TABLET BY MOUTH TWICE DAILY FOR BLOOD PRESSURE/HEART Rx# [id number] Last Released: 12/16/23 Qty/Days Supply: 180/90 Rx Expiration Date: 03/10/24 Refills Remainin Indication: FOR HIGH BLOOD PRESSURE Remote METOPROLOL TARTRATE 100MG TAB TAKE ONE TABLET BY MOUTH EVERY 12 HOURS FOR HEART AND BLOOD PRESSURE Last Filled: 09/21/23 (Active at [facility]) Rx Expiration Date: 03/18/24 Days Supply: 90 SUPPLIES /alta/ CHANDANA SORIANO MD PRIMARY CARE PHYSICIAN Signed: 02/10/2024 09:40 CHANDANA SORIANO [facility]
--- OUTSIDE RECORDS SUMMARY | 2024-09-27 16:46 | XMS_ITS | Continuity of Care Document ---
Author Name [facility] Organization [facility] Care Team Providers Care Cardiac Monitor Name Role Phone [facility] Unavailable Unavailable Problems Combined list of problems from Department of Defense and Veterans Affairs facilities. It does not include entries that were removed or entered in error. Problem Status Onset Date Problem Type Date of Resolution Comments Source AF - Atrial fibrillation Active Condition [facility] Allergic asthma Active Condition [facility] Allergic Rhinitis (SCT 28351954) Active Condition [facility] Asthma Active Condition [facility] Atherosclerosis of coronary artery Active Condition Aug 03, 2024 Entered By: EYAD SIMON Comment: hx CABG x 3 2014, no [place] [facility] Barretts oesophagus with dysplasia Active Condition [facility] CKD - chronic kidney disease Active Condition Jul 29, 2024 Entered By: EYAD SIMON Comment: 02/04/24 GFR 48 [place] Coronary arteriosclerosis Active Condition Jun 30 8 Entered By: ROLY CASTANEDA Comment: s/p 3 CABG 11/2014 [facility] Exposure to potentially hazardous substance (SCT [id number]) Active Condition Dec 22 4 Entered By: RENE GARRETT Comment: Entered automatically through [facility] Problem List documentation program [facility] Exposure to potentially hazardous substance (SCT [id number]) Active Condition Dec 27 4 Entered By: BARBARA BOO Comment: [facility] done:04/22/2023 [facility] History of surgery Active Condition D ec 2023 Entered By: EYAD SIMON Comment: umbilical hernia repair 07/15/2024 - Dr. Coreas 2023 Entered By: EYAD SIMON Comment: CABG x 3 [facility] HTN - Hypertension (SCT 80979617) Active Condition [facility] D Hyperlipidaemia Active Condition [facility] Hyperlipidemia (SCT 10952240) Active Condition [place] Hypertension Active Condition [facility] Long-term current use of anticoagulant Active Condition [facility] [place] [facility] Low back pain Active Condition [facility] Osteopenia Active Condition Aug 14 Entered By: EYAD SIMON Comment: 08/03/24 Start Fosamax x 3-5 yearsDec 2023 Entered By: EYAD SIMON Comment: 04/26/24 [facility] Paroxysmal atrial fibrillation Active Condition Jun 30, 2018 Entered By: ROLY CASTANEDA Comment: s/p ablation 2014 [facility] Prediabetes ([facility] [id number]) Active Condition Jul 29, 2024 Entered By: EYAD SIMON Comment: 02/04/24 A1c 5.8 [place] [facility] Tinnitus [facility] Under care of multiple providers Active Condition Aug 14 Entered By: EYAD SIMON Comment: community PCP - DEANA Sharma 2023 Entered By: EYAD SIMON Comment: cardiology - Dr. Herrera, [facility] Vitamin D deficiency [facility] Diagnosis: ICD-10-CM J45.909 Unspecified asthma, uncomplicated Active Diagnosis [facility] Diagnosis: ICD-10-CM R73.03 Prediabetes Active Diagnosis [place] [facility] Diagnosis: ICD-10-CM Z04.89 Encounter for examination and observation for oth reasons Active Diagnosis [facility] Diagnosis: ICD-10-CM I10 Essential (primary) hypertension Active Diagnosis [place] Diagnosis: ICD-10-CM I25.10 Athscl heart disease of [place] coronary artery w/o ang pctrs Active Diagnosis [facility] Diagnosis: ICD-10-CM K42.9 Umbilical hernia without obstruction or gangrene Active Diagnosis [facility] Medications Combined list of outpatient medications from Department of Defense and Veterans Affairs facilities.Medications provided include 1) outpatient medications from the last 15 months, and 2) patient-reported medications. Medication Details Route Status Patient Instructions Prescription Expires Prescription Number Last Dispense Date Ordering Provider Order Date Order Qty Source ALBUTEROL 90MCG/ACTUA T (CFC-F) INHL,ORAL,8 .5GM DOSE COUNTER INHALE 1 PUFF BY MOUTH THREE TIMES DAILY NEEDED FOR [place] RESPIR ATORY (INHAL ATION) ACTIVE 08/04/2025 [id number] 4 Sofi SIMON 2023 3 [place] ALBUTEROL 90MCG/ACTUA T (CFC-F) INHL,ORAL,8 .5GM DOSE COUNTER INHALE 1 PUFF BY MOUTH THREE TIMES DAILY NEEDED FOR [place] RESPIR ATORY (INHAL ATION) DISCONT INUED 03/25/2025 [id number] 4 DAVID SORIANO F 2023 3 [place] ALBUTEROL 90MCG/ACTUA T (CFC-F) INHL,ORAL,8 .5GM DOSE COUNTER INHALE 1 PUFF BY MOUTH THREE TIMES DAILY NEEDED FOR [place] RESPIR ATORY (INHAL ATION) DISCONT INUED 03/10/2024 [id number] 4 DAVID SORIANO F 2023 3 [place] ALENDRONATE 70MG TAB TAKE ONE TABLET BY MOUTH ONCE A WEEK (TAKE WITH A FULL GLASS OF WATER; REMAIN UPRIGHT FOR 30 MINUTES; NO FOOD OR DRINK FOR 30 MINUTES) ORAL ACTIVE 08/04/2025 [id number] 4 Sofi SIMON 2023 12 [place] APIXABAN 5MG TAB TAKE ONE TABLET BY MOUTH EVERY 12 HOURS ATRIAL FIBRILAT ION ORAL SUSPEND ED 08/04/2025 [id number] 5 Sofi SIMON 2024 180 [place] APIXABAN 5MG TAB TAKE ONE TABLET BY MOUTH EVERY 12 HOURS ATRIAL FIBRILAT ION ORAL DISCONT INUED 10/20/2024 [id number] 4 Sofi SIMON 2023 180 [place] APIXABAN 5MG TAB TAKE ONE TABLET BY MOUTH EVERY 12 HOURS ATRIAL FIBRILAT ION ORAL DISCONT INUED 06/22/2024 [id number] 4 DAVID SORIANO F 2023 180 [place] APIXABAN 5MG TAB TAKE ONE TABLET BY MOUTH EVERY 12 HOURS ATRIAL FIBRILAT ION ORAL DISCONT INUED 03/10/2024 [id number] 4 DAVID SORIANO F 2023 180 [facility] IELD APIXABAN 5MG TAB TAKE ONE TABLET BY MOUTH TWICE A DAY TO PREVENT BLOOD CLOTS MUST OBTAIN UPDATED LAB WORK FOR FURTHER RENEWALS ORAL 03/18/2024 [id number] 4 Jason GRIGGS G [address] [facility] ATORVASTATI N CA 80MG TAB TAKE ONE TABLET BY MOUTH AT BEDTIME ORAL SUSPEND ED 08/04/2025 [id number] 5 Sofi SIMON 2024 90 [facility] IELD ATORVASTATI N CA 80MG TAB TAKE ONE TABLET BY MOUTH AT BEDTIME ORAL DISCONT INUED 03/25/2025 [id number] 4 DAVID SORIANO F 2023 90 [facility] IELD ATORVASTATI N CA 80MG TAB TAKE ONE TABLET BY MOUTH AT BEDTIME ORAL DISCONT INUED 03/10/2024 [id number] 4 DAVID SORIANO F 2023 90 [facility] IELD ATORVASTATI N CA 80MG TAB TAKE ONE TABLET BY MOUTH AT BEDTIME FOR LOWERING CHOLESTE ROL ORAL 04/16/2024 [id number] 4 Jason GRIGGS G [address] [facility] BETAMETHASO NE DIPROPIONAT E 0.05% CREAM,TOP APPLY A THIN LAYER TOPICALL Y TWICE DAILY NEEDED FOR ATOPIC DERMATIT IS FOR ITCHING/ RASH TOPICA L ACTIVE 08/04/2025 [id number] 4 [facility] BETAMETHAS[facility] NE DIPROPIONAT E 0.05% OINT,TOP APPLY THIN LAYER TOPICALL Y ONCE DAILY NEEDED FOR ITCHING/ RASH TOPICA L DISCONT INUED 03/10/2024 [id number] 4 DAVID SORIANO F 2023 4 [place] BETAMETHASO NE DIPROPIONAT E 0.05% OINT,TOP APPLY THIN LAYER TOPICALL Y ONCE DAILY NEEDED FOR ITCHING/ RASH TOPICA Zoltan 06/22/2024 [id number] 4 DAVID SORIANO F 2023 4 [place] CETIRIZINE HCL 10MG TAB TAKE ONE TABLET BY MOUTH EVERY DAY NEEDED ORAL ACTIVE JOSEY CUMMINGS 2018 [facility] CHOLECALCIF GLADYS 50MCG (2,000UNIT) TAB TAKE ONE TABLET BY MOUTH ONCE DAILY FOR VITAMIN SUPPLEME NTATION ORAL SUSPEND ED 08/04/2025 [id number] 5 Sofi SIMON 2024 100 [place] CHOLECALCIF GLADYS 50MCG (2,000UNIT) TAB TAKE ONE TABLET BY MOUTH ONCE DAILY FOR VITAMIN SUPPLEME NTATION ORAL DISCONT INUED 03/25/2025 [id number] 4 DAVID SORIANO F 2023 100 [place] CHOLECALCIF GLADYS 50MCG (2,000UNIT) TAB TAKE ONE TABLET BY MOUTH ONCE DAILY FOR VITAMIN SUPPLEME NTATION ORAL DISCONT INUED 03/10/2024 [id number] 4 DAVID SORIANO 2023 100 [place] FLUTICASONE 100MCG/SALM ETEROL 50MCG INHL,ORAL,D ISKUS,60 INHALE 1 PUFF BY MOUTH TWICE DAILY FOR [place] PASM PREVENTI ON WITH COPD - RINSE MOUTH AFTER USE RESPIR ATORY (INHAL ATION) SUSPEND ED 08/04/2025 [id number] 5 Sofi SIMON 2024 3 [place] FLUTICASONE 100MCG/SALM ETEROL 50MCG INHL,ORAL,D ISKUS,60 INHALE 1 PUFF BY MOUTH TWICE DAILY FOR BRONCH[place] PASM PREVENTI ON WITH COPD - RINSE MOUTH AFTER USE RESPIR ATORY (INHAL ATION) DISCONT INUED 03/25/2025 [id number] 4 DAVID SORIANO F 2023 3 [place] FLUTICASONE 100MCG/SALM ETEROL 50MCG INHL,ORAL,D ISKUS,60 INHALE 1 PUFF BY MOUTH TWICE DAILY FOR BRONCH[place] PASM PREVENTI ON WITH COPD - RINSE MOUTH AFTER USE RESPIR ATORY (INHAL ATION) DISCONT INUED 03/10/2024 [id number] 4 DAIVD SORIANO F 2023 3 [place] FLUTICASONE 100MCG/SALM ETEROL 50MCG INHL,ORAL,D ISKUS,60 INHALE 1 PUFF BY MOUTH TWICE A DAY *USE REGULARL Y TO PREVENT SHORTNES S OF BREATH - RINSE MOUTH AFTER USE* RESPIR ATORY (INHAL ATION) 12/13/2023 [id number] 3 Jason GRIGGS G [address] [facility] FLUTICASONE PROPIONATE 50MCG/SPRAY SOLN,NASAL, 16GM INSTILL 2 SPRAYS INTO EACH NOSTRIL ONCE DAILY NEEDED FOR NASAL IRRITATI ON/INFLA MMATION NASAL SUSPEND ED 08/04/2025 [id number] 5 Sofi SIMON C 2024 3 [place] FLUTICASONE PROPIONATE 50MCG/SPRAY SOLN,NASAL, 16GM INSTILL 2 SPRAYS INTO EACH NOSTRIL ONCE DAILY NEEDED FOR NASAL IRRITATI ON/INFLA MMATION NASAL DISCONT INUED 03/25/2025 [id number] 4 DAVID SORIANO F 2023 3 [place] FLUTICASONE PROPIONATE 50MCG/SPRAY SOLN,NASAL, 16GM INSTILL 2 SPRAYS INTO EACH NOSTRIL ONCE DAILY NEEDED FOR NASAL IRRITATI ON/INFLA MMATION NASAL DISCONT INUED 03/10/2024 [id number] 4 DAVID SORIANO F 2023 3 [place] HYDROCHLORO THIAZIDE 25MG/TRIAMT ERENE 37.5MG TAB TAKE 1 TABLET BY MOUTH ONCE DAILY FOR HIGH BLOOD PRESSURE ORAL SUSPEND ED 08/04/2025 [id number] 5 Sofi SIMON 2024 90 [place] HYDROCHLORO THIAZIDE 25MG/TRIAMT ERENE 37.5MG TAB TAKE 1 TABLET BY MOUTH ONCE DAILY FOR HIGH BLOOD PRESSURE ORAL DISCONT INUED 10/20/2024 [id number] 4 Sofi SIMON 2023 90 [place] HYDROCHLORO THIAZIDE 25MG/TRIAMT ERENE 37.5MG TAB TAKE 1 TABLET BY MOUTH ONCE DAILY FOR HIGH BLOOD PRESSURE ORAL DISCONT INUED 06/22/2024 [id number] 4 DAVID SORIANO RMSALOMÓN F 2023 90 [place] HYDROCHLORO THIAZIDE 25MG/TRIAMT ERENE 37.5MG TAB TAKE 1 TABLET BY MOUTH ONCE DAILY FOR HIGH BLOOD PRESSURE ORAL DISCONT INUED 03/10/2024 [id number] 4 DAVID SORIANO F 2023 90 [place] HYDROCHLORO THIAZIDE 25MG/TRIAMT ERENE 37.5MG TAB TAKE 1 TABLET BY MOUTH EVERY DAY FOR BLOOD PRESSURE ORAL 04/22/2024 [id number] 4 Jason GRIGGS 2022 90 [facility] [place] POTASSIUM 100MG TAB TAKE ONE TABLET BY MOUTH ONCE DAILY FOR BLOOD PRESSURE /HEART ORAL SUSPEND ED 08/04/2025 [id number] 5 Sofi SIMON 2024 90 [place] POTASSIUM 100MG TAB TAKE ONE TABLET BY MOUTH ONCE DAILY FOR BLOOD PRESSURE /HEART ORAL DISCONT INUED 10/20/2024 [id number] 4 Sofi SIMON 2023 90 [place] POTASSIUM 100MG TAB TAKE ONE TABLET BY MOUTH ONCE DAILY FOR BLOOD PRESSURE /HEART ORAL DISCONT INUED 06/22/2024 [id number] 4 DAVID SORIANO F 2023 90 [place] POTASSIUM 100MG TAB TAKE ONE TABLET BY MOUTH ONCE DAILY FOR BLOOD PRESSURE /HEART ORAL DISCONT INUED 03/10/2024 [id number] 4 DAVID SORIANO F 2023 90 [place] POTASSIUM 100MG TAB TAKE ONE TABLET BY MOUTH EVERY DAY FOR HEART AND BLOOD PRESSURE ORAL 04/22/2024 [id number] 4 Jason GRIGGS G 2022 90 [facility] METOPROLOL TARTRATE 100MG TAB TAKE ONE TABLET BY MOUTH TWICE DAILY FOR BLOOD PRESSURE /HEART ORAL SUSPEND ED 08/04/2025 [id number] 5 Sofi SIMON 2024 180 [place] METOPROLOL TARTRATE 100MG TAB TAKE ONE TABLET BY MOUTH TWICE DAILY FOR BLOOD PRESSURE /HEART ORAL DISCONT INUED 03/25/2025 [id number] 4 DAVID SORIANO RMEN F 2023 180 [place] METOPROLOL TARTRATE 100MG TAB TAKE ONE TABLET BY MOUTH TWICE DAILY FOR BLOOD PRESSURE /HEART ORAL DISCONT INUED 03/10/2024 [id number] 4 DAVID SORIANO RMEN F 2023 180 [place] METOPROLOL TARTRATE 100MG TAB TAKE ONE TABLET BY MOUTH EVERY 12 HOURS FOR HEART AND BLOOD PRESSURE ORAL 03/18/2024 [id number] 4 Jason GRIGGS G [address] [facility] MONTELUKAST NA 10MG TAB TAKE ONE TABLET BY MOUTH AT BEDTIME FOR ASTHMA ORAL ACTIVE 08/04/2025 [id number] 4 Sofi SIMON 2023 90 [place] OMEPRAZOLE 20MG CAP,EC TAKE 1 CAPSULE BY MOUTH EVERY DAY ORAL ACTIVE DAVID CASTANEDA ROL A [address] [facility] Allergies, Adverse Reactions, Alerts Combined list of allergies from Department of Defense and Veterans Affairs facilities. It does not include entries that were removed or entered in error. Substance Category Reaction Severity Reaction type Status Date Reported Comments Source MELONS Propensity to adverse reactions to food (finding) Throat irritation MILD active 4 [facility] PENICILIN VK Propensity to adverse reactions to drug (finding) Eruption MODERATE active 4 [facility] PENICILLIN Propensity to adverse reactions to drug (finding) Eruption active 8 [facility] POLLEN Propensity to adverse reaction (finding) Nasal congestion MODERATE active 4 [facility] Immunizations Combined list of available immunizations from the Department of Defense and Veterans Affairs facilities. Immunization Series Date Given Administered By Site Reaction Lot Number CVX Code Drug Resume Writer Status Comments Source INFLUENZA, UNSPECIFIED FORMULATION 2023 88 complet ed [facility] COVID-19 (PFIZER), MRNA, LNP-S, PF, AUNG-SUCROSE, 30 MCG/0.3 ML (AGES 12+ YEARS) 1 [address] [facility] INFLUENZA, UNSPECIFIED FORMULATION 2022 88 complet ed [facility] COVID-19 (PFIZER), MRNA, LNP-S, PF, 30 MCG/0.3 ML DOSE 20[address] [facility] COVID-19 (PFIZER), MRNA, LNP-S, BIVALENT, PF, 30 MCG/0.3 ML DOSE 2 [address] [facility] INFLUENZA, UNSPECIFIED FORMULATION [address] [facility] COVID-19 (MODERNA), MRNA, LNP-S, PF, 100 MCG/0.5ML DOSE OR 50 MCG/0.25ML DOSE 4 [address] [facility] COVID-19 (MODERNA), MRNA, LNP-S, PF, 100 MCG OR 50 MCG DOSE 3 2020 NONE 207 complet ed MOD; [id number]; 2 [facility] INFLUENZA, UNSPECIFIED FORMULATION 2020 88 complet ed [facility] COVID-19 (MODERNA), MRNA, LNP-S, PF, 100 MCG/0.5 ML DOSE 2 2020 207 complet ed MOD; [id number]; [address] [facility] COVID-19 (MODERNA), MRNA, LNP-S, PF, 100 MCG/0.5 ML DOSE 1 2020 207 complet ed MOD; [id number]; [address] [facility] ZOSTER RECOMBINANT 2 2019 187 complet ed [facility] PNEUMOCOCCAL POLYSACCHARID E PPV23 2019 33 complet ed [facility] TDAP 2019 115 complet ed [facility] ZOSTER RECOMBINANT 1 2019 187 complet ed [facility] INFLUENZA, UNSPECIFIED FORMULATION 2018 88 complet ed [facility] PNEUMOCOCCAL CONJUGATE PCV 13 2017 133 complet ed [facility] INFLUENZA, SEASONAL, INJECTABLE, PRESERVATIVE FREE 2017 NONE [address] [facility] Results Combined list of recent chemistry, hematology and other laboratory results from Department of Defense and Veterans Affairs, ranging from 15 months to all on record, depending upon the facility. Order Name Results Value Reference Range Date Interpretation Specimen Comments Source PT & INR (COUMADIN ) INR IN PLATELET POOR PLASMA BY COAGULATION ASSAY 1.7 02/03 Specimen Type: PLASMA No comment entered. Ordering Provider: SAMINA SIMON Report Released Date/Time: Dec 18, 2023 08:42 AM Reporting Lab: [address] [address] Performing Lab: [address] [address] [place] PT & INR (COUMADIN ) PROTHROMBIN TIME (PT) 18.9 s 10.0 - 13.1 02/03 H Specimen Type: PLASMA No comment entered. Ordering Provider: SAMINA SIMON Report Released Date/Time: Dec 18, 2023 08:42 AM Reporting Lab: [address] [address] Performing Lab: [address] [address] [place] TSH THYROTROPIN [UNITS/VOLU ME] IN SERUM OR PLASMA 1.80 u[IU]/ mL 0.35 - 5.00 02/03 Specimen Type: SERUM No comment entered. Ordering Provider: VALENTINE SORIANO Report Released Date/Time: January 28, 2024 08:49 AM Reporting Lab: [facility] [address] [facility] [address] Performing Lab: [facility]ITALRCREST[facility] CENTERTRN [address] [address] [place] BASIC METABOLIC PANEL (fasting) UREA NITROGEN [MASS/VOLUM E] IN SERUM OR PLASMA 45 mg/dL 7 - 25 02/03 H Specimen Type: SERUM No comment entered. Ordering Provider: VALENTINE SORIANO Report Released Date/Time: January 28, 2024 08:49 AM Reporting Lab: [facility]ENTERTRN [address] [address] Performing Lab: [facility]ITALRLA[facility]N [address] [address] [place] BASIC METABOLIC PANEL (fasting) GLUCOSE [MASS/VOLUM E] IN SERUM OR PLASMA 105 mg/dL 65 - 100 02/03 H Specimen Type: SERUM No comment entered. Ordering Provider: VALENTINE SORIAON Report Released Date/Time: January 28, 2024 08:49 AM Reporting Lab: [facility]TRN [address] [address] Performing Lab: [facility]ITALRLA[facility]ITALN [address] [address] [place] BASIC METABOLIC PANEL (fasting) SODIUM [MOLES/VOLU ME] IN SERUM OR PLASMA 138 mmol/L 135 - 145 02/03 Specimen Type: SERUM No comment entered. Ordering Provider: VALENTINE SORIANO Report Released Date/Time: January 28, 2024 08:49 AM Reporting Lab: [facility]OSPITALRL TRN [facility]ITALUSE[address] [address] Performing Lab: [facility]ITALRL TRN [facility]USE[address] [address] [place] BASIC METABOLIC PANEL (fasting) POTASSIUM [MOLES/VOLU ME] IN SERUM OR PLASMA 3.8 mmol/L 3.5 - 5.0 02/03 Specimen Type: SERUM No comment entered. Ordering Provider: VALENTINE SORIANO Report Released Date/Time: January 28, 2024 08:49 AM Reporting Lab: [facility]ITALRL W[facility]N [address] [address] Performing Lab: [facility] [address] [address] [place] BASIC METABOLIC PANEL (fasting) CHLORIDE [MOLES/VOLU ME] IN SERUM OR PLASMA 108 mmol/L 100 - 110 02/03 Specimen Type: SERUM No comment entered. Ordering Provider: VALENTINE SORIANO Report Released Date/Time: January 28, 2024 08:49 AM Reporting Lab: [facility] [address] [address] Performing Lab: [facility]ITALRL TRN [address] [address] [place] BASIC METABOLIC PANEL (fasting) CARBON DIOXIDE, TOTAL [MOLES/VOLU ME] IN SERUM OR PLASMA 23 meq/L 20 - 30 02/03 Specimen Type: SERUM No comment entered. Ordering Provider: VALENTINE SORIANO Report Released Date/Time: January 28, 2024 08:49 AM Reporting Lab: [facility]RL [facility] [address] [address] Performing Lab: [facility]ITALRL TRN [address] [address] [place] BASIC METABOLIC PANEL (fasting) CREATININE [MASS/VOLUM E] IN SERUM OR PLASMA 1.49 mg/dL 0.50 - 1.40 02/03 H Specimen Type: SERUM No comment entered. Ordering Provider: VALENTINE SORIANO Report Released Date/Time: January 28, 2024 08:49 AM Reporting Lab: [facility]ITALRL [facility]ITALUSE[address] [address] Performing Lab: [facility] HOSPITALRL TRN [address] [address] [place] BASIC METABOLIC PANEL (fasting) GLOMERULAR FILTRATION RATE/1.73 SQ M.PREDICTED [VOLUME RATE/AREA] IN SERUM, PLASMA OR BLOOD BY CREATININE- BASED FORMULA (CKD-EPI 2020) 48 mL/min 60 02/03 L Specimen Type: SERUM No comment entered. Ordering Provider: VALENTINE SORIANO Report Released Date/Time: January 28, 2024 08:49 AM Reporting Lab: [facility] [address] [address] Performing Lab: [facility] HOSPITALRLAKE [facility]N [address] [address] [place] LIPID PANEL FASTING CHOLESTEROL [MASS/VOLUM E] IN SERUM OR PLASMA 105 mg/dL 02/03 Specimen Type: SERUM No comment entered. Ordering Provider: VALENTINE SORIANO Report Released Date/Time: January 28, 2024 08:49 AM Reporting Lab: [address] [address] Performing Lab: [address] [address] [place] LIPID PANEL FASTING TRIGLYCERID E [MASS/VOLUM E] IN SERUM OR PLASMA 68 mg/dL 0 - 150 02/03 Specimen Type: SERUM No comment entered. Ordering Provider: VALENTINE SORIANO Report Released Date/Time: January 28, 2024 08:49 AM Reporting Lab: [address] [address] Performing Lab: [facility] [address] [address] [place] LIPID PANEL FASTING CHOLESTEROL IN LDL [MASS/VOLUM E] IN SERUM OR PLASMA BY CALCULATION 58 mg/dL 0 - 129 02/03 Specimen Type: SERUM No comment entered. Ordering Provider: VALENTINE SORIAON Report Released Date/Time: January 28, 2024 08:49 AM Reporting Lab: [facility] [address] [address] Performing Lab: [address] [address] [place] LIPID PANEL FASTING CHOLESTEROL .TOTAL/CHOL ESTEROL IN HDL [MASS RATIO] IN SERUM OR PLASMA 3.2 02/03 Specimen Type: SERUM No comment entered. Ordering Provider: VALENTINE SORIANO Report Released Date/Time: January 28, 2024 08:49 AM Reporting Lab: [facility] [address] [facility] [address] Performing Lab: [address] [address] [place] LIPID PANEL FASTING CHOLESTEROL IN HDL [MASS/VOLUM E] IN SERUM OR PLASMA 33 mg/dL 40 - 60 02/03 L Specimen Type: SERUM No comment entered. Ordering Provider: VALENTINE SORIANO Report Released Date/Time: January 28, 2024 08:49 AM Reporting Lab: [address] [address] Performing Lab: [address] [address] [place] LIVER FUNCTION PROTEIN [MASS/VOLUM E] IN SERUM OR PLASMA 6.3 g/dL 6.0 - 8.3 02/03 Specimen Type: SERUM No comment entered. Ordering Provider: VALENTINE SORIANO Report Released Date/Time: January 28, 2024 08:49 AM Reporting Lab: [address] [address] Performing Lab: [address] [address] [place] LIVER FUNCTION ALBUMIN [MASS/VOLUM E] IN SERUM OR PLASMA 3.7 g/dL 3.5 - 5.0 02/03 Specimen Type: SERUM No comment entered. Ordering Provider: VALENTINE SORIANO Report Released Date/Time: January 28, 2024 08:49 AM Reporting Lab: [facility] [address] [address] Performing Lab: [address] [address] [place] FUNCTION ALKALINE PHOSPHATASE [ENZYMATIC ACTIVITY/VO LUME] IN SERUM OR PLASMA 69 U/L 40 - 150 02/03 Specimen Type: SERUM No comment entered. Ordering Provider: VALENTINE SORIANO Report Released Date/Time: January 28, 2024 08:49 AM Reporting Lab: [facility] [place] [facility] [address] [facility] [address] Performing [facility]: [facility] [address] [address] [place] FUNCTION ASPARTATE AMINOTRANSF ERASE [ENZYMATIC ACTIVITY/VO LUME] IN SERUM OR PLASMA 18 U/L 5 - 34 02/03 Specimen Type: SERUM No comment entered. Ordering Provider: VALENTINE SORIANO Report Released Date/Time: January 28, 2024 08:49 AM Reporting Lab: [facility] [place] [address] [address] Performing Lab: [facility] [address] [place] [facility] ALANINE AMINOTRANSF ERASE [ENZYMATIC ACTIVITY/VO LUME] IN SERUM OR PLASMA 18 U/L 02/03 Specimen Type: SERUM No comment entered. Ordering Provider: VALENTINE SORIANO Report Released Date/Time: January 28, 2024 08:49 AM Reporting Lab: [facility] [place] [address] [address] Per[facility] [address] [address] [place] LIVER FUNCTION BILIRUBIN.T OTAL [MASS/VOLUM E] IN SERUM OR PLASMA 0.9 mg/dL 0.2 - 1.2 02/03 Specimen Type: SERUM No comment entered. Ordering Provider: VALENTINE SORIANO Report Released Date/Time: January 28, 2024 08:49 AM Reporting Lab: [place] [facility] [place] [address] [address] Performing Lab: [place] [facility] [place] [address] [address] [place] CBC AND DIFF (AUTO) LEUKOCYTES [#/VOLUME] IN BLOOD BY AUTOMATED COUNT 4.09 10*3/u L 4.50 - 11.00 02/03 L Specimen Type: BLOOD No comment entered. Ordering Provider: VALENTINE SORIANO Report Released Date/Time: January 28, 2024 08:49 AM Reporting Lab: [facility] [address] [address] Performing Lab: [facility] [address] [address] [place] CBC AND DIFF (AUTO) ERYTHROCYTE S [#/VOLUME] IN BLOOD BY AUTOMATED COUNT 4.90 10*6/u L 4.23 - 5.66 02/03 Specimen Type: BLOOD No comment entered. Ordering Provider: VALENTINE SORIANO Report Released Date/Time: January 28, 2024 08:49 AM Reporting Lab: [facility] [address] [address] Performing Lab: [facility] [address] [address] [place] CBC AND DIFF (AUTO) HEMOGLOBIN [MASS/VOLUM E] IN BLOOD 14.8 g/dL 12.8 - 17 02/03 Specimen Type: BLOOD No comment entered. Ordering Provider: VALENTINE SORIANO Report Released Date/Time: January 28, 2024 08:49 AM Reporting Lab: [facility] [address] [address] Performing Lab: [facility] [address] [address] [place] CBC AND DIFF (AUTO) HEMATOCRIT [VOLUME FRACTION] OF BLOOD BY AUTOMATED COUNT 45.1 39.2 - 50.4 02/03 Specimen Type: BLOOD No comment entered. Ordering Provider: VALENTINE SORIANO Report Released Date/Time: January 28, 2024 08:49 AM Reporting Lab: [facility]TRN [address] [address] Performing Lab: [facility] [address] [address] [place] CBC AND DIFF (AUTO) MCV [ENTITIC VOLUME] BY AUTOMATED COUNT 92.0 fL 82 - 99 02/03 Specimen Type: BLOOD No comment entered. Ordering Provider: VALENTINE SORIANO Report Released Date/Time: January 28, 2024 08:49 AM Reporting Lab: [facility]RL TRN [address] [address] Performing Lab: [facility]RL [facility] [[email or web address]N [address] [address] [place] CBC AND DIFF (AUTO) MCHC [MASS/VOLUM E] BY AUTOMATED COUNT 32.8 g/dL 30.8 - 35.1 02/03 Specimen Type: BLOOD No comment entered. Ordering Provider: VALENTINE SORIANO Report Released Date/Time: January 28, 2024 08:49 AM Reporting Lab: [facility] TRN [address] [address] Performing Lab: [facility]LA[facility]N [address] [address] [place] CBC AND DIFF (AUTO) PLATELETS [#/VOLUME] IN BLOOD BY AUTOMATED COUNT 131 10*3/u L 140 - 360 02/03 L Specimen Type: BLOOD No comment entered. Ordering Provider: VALENTINE SORIANO Report Released Date/Time: January 28, 2024 08:49 AM Reporting Lab: [facility]ITALRL [facility] [[email or web address]]N [address] [address] Performing Lab: [facility] [[email or web address]]N [address] [address] [place] CBC AND DIFF (AUTO) ERYTHROCYTE DISTRIBUTIO N WIDTH [RATIO] BY AUTOMATED COUNT 13.4 12.0 - 16.0 02/03 Specimen Type: BLOOD No comment entered. Ordering Provider: VALENTINE SORIANO Report Released Date/Time: January 28, 2024 08:49 AM Reporting Lab: [facility]ITALRL TRN [address] [address] Performing Lab: [facility]RL [facility] [[email or web address]]N [address] [address] [place] CBC AND DIFF (AUTO) MONOCYTES [#/VOLUME] IN BLOOD BY AUTOMATED COUNT 0.54 10*3/u L 0.30 - 1.10 02/03 Specimen Type: BLOOD No comment entered. Ordering Provider: VALENTINE SORIANO Report Released Date/Time: January 28, 2024 08:49 AM Reporting Lab: [place] [facility] [place] [address] [address] Performing Lab: [facility] [place] [address] [address] [place] CBC AND DIFF (AUTO) MCH [ENTITIC MASS] BY AUTOMATED COUNT 30.2 pg 26.2 - 32.6 02/03 Specimen Type: BLOOD No comment entered. Ordering Provider: VALENTINE SORIANO Report Released Date/Time: January 28, 2024 08:49 AM Reporting Lab: [facility] [address] [address] Performing Lab: [place] [facility] [address] [address] [place] CBC AND DIFF (AUTO) NEUTROPHILS /100 LEUKOCYTES IN BLOOD BY AUTOMATED COUNT 36.2 43.7 - 75.8 02/03 L Specimen Type: BLOOD No comment entered. Ordering Provider: VALENTINE SORIANO Report Released Date/Time: January 28, 2024 08:49 AM Reporting Lab: [facility] [address] Performing Lab: [facility] [place] [address] [address] [place] CBC AND DIFF (AUTO) LYMPHOCYTES /100 LEUKOCYTES IN BLOOD BY AUTOMATED COUNT 46.5 14.0 - 42.3 02/03 H Specimen Type: BLOOD No comment entered. Ordering Provider: VALENTINE SORIANO Report Released Date/Time: January 28, 2024 08:49 AM Reporting Lab: [facility] [place] [address] [address] Performing Lab: [place] [facility] [address] [address] [place] CBC AND DIFF (AUTO) MONOCYTES/1 00 LEUKOCYTES IN BLOOD BY AUTOMATED COUNT 13.2 5.1 - 13.7 02/03 Specimen Type: BLOOD No comment entered. Ordering Provider: VALENTINE SORIANO Report Released Date/Time: January 28, 2024 08:49 AM Reporting Lab: [place] [facility] [address] [address] Performing Lab: [place] [facility] [address] [address] [place] CBC AND DIFF (AUTO) EOSINOPHILS /100 LEUKOCYTES IN BLOOD BY AUTOMATED COUNT 2.9 0.4 - 6.8 02/03 Specimen Type: BLOOD No comment entered. Ordering Provider: VALENTINE SORIANO Report Released Date/Time: January 28, 2024 08:49 AM Reporting Lab: [facility]ITALRL TRN [address] [address] Performing Lab: [facility]RL TRN [address] [address] [place] CBC AND DIFF (AUTO) BASOPHILS/1 00 LEUKOCYTES IN BLOOD BY AUTOMATED COUNT 1.2 0.1 - 2.0 02/03 Specimen Type: BLOOD No comment entered. Ordering Provider: VALENTINE SORIANO Report Released Date/Time: January 28, 2024 08:49 AM Reporting Lab: [facility] [address] [address] Performing Lab: [facility]ITALRL TRN [facility] [address] [place] CBC AND DIFF (AUTO) NEUTROPHILS [#/VOLUME] IN BLOOD BY AUTOMATED COUNT 1.48 10*3/u L 2.20 - 7.60 02/03 L Specimen Type: BLOOD No comment entered. Ordering Provider: VALENTINE SORIANO Report Released Date/Time: January 28, 2024 08:49 AM Reporting Lab: [facility]ITALRL [facility]US[facility] [address] [address] Performing Lab: [facility]ITALRL TRN [facility] [address] [place] CBC AND DIFF (AUTO) LYMPHOCYTES [#/VOLUME] IN BLOOD BY AUTOMATED COUNT 1.90 10*3/u L 1.00 - 3.20 02/03 Specimen Type: BLOOD No comment entered. Ordering Provider: VALENTINE SORIANO Report Released Date/Time: January 28, 2024 08:49 AM Reporting Lab: [facility] [address] [address] Performing Lab: [place] [facility] [address] [address] [place] CBC AND DIFF (AUTO) EOSINOPHILS [#/VOLUME] IN BLOOD BY AUTOMATED COUNT 0.12 10*3/u L 0.03 - 0.44 02/03 Specimen Type: BLOOD No comment entered. Ordering Provider: VALENTINE SORIANO Report Released Date/Time: January 28, 2024 08:49 AM Reporting Lab: [facility]ITALRL TRN [address] [address] Performing Lab: [place] [facility] [address] [address] [place] CBC AND DIFF (AUTO) BASOPHILS [#/VOLUME] IN BLOOD BY AUTOMATED COUNT 0.05 10*3/u L 0.01 - 0.13 02/03 Specimen Type: BLOOD No comment entered. Ordering Provider: VALENTINE SORIANO Report Released Date/Time: January 28, 2024 08:49 AM Reporting Lab: [place] [facility] [address] [address] Performing Lab: [place] [facility] [address] [address] [place] CBC AND DIFF (AUTO) IMMATURE GRANULOCYTE S/100 LEUKOCYTES IN BLOOD BY AUTOMATED COUNT 0.0 0.0 - 0.7 02/03 Specimen Type: BLOOD No comment entered. Ordering Provider: VALENTINE SORIANO Report Released Date/Time: January 28, 2024 08:49 AM Reporting Lab: [place] [facility] [address] [address] Performing Lab: [place] [facility] [address] [address] [place] CBC AND DIFF (AUTO) IMMATURE GRANULOCYTE S [#/VOLUME] IN BLOOD 0.00 10*3/u L 0.00 - 0.06 02/03 Specimen Type: BLOOD No comment entered. Ordering Provider: VALENTINE SORIANO Report Released Date/Time: January 28, 2024 08:49 AM Reporting Lab: [address] [address] Performing Lab: [address] [place] HEMOGLOBI N A1C PANEL HEMOGLOBIN A1C/HEMOGLO BIN.TOTAL IN BLOOD BY HPLC 5.8 4.0 - 5.6 02/03 H Specimen Type: BLOOD Comment: Values obtained from A1C measurement s can vary. For atypical A1C assays, a reported value of 7.0 could actually be between 6.72 and 7.28 if measured by a reference method. A reported value of 9.0 could actually be between 8.73 and 9.27. Ref: http://www. ngsp.org/[place] Pdata.asp Ordering Provider: VALENTINE SORIANO Report Released Date/Time: January 28, 2024 08:49 AM Reporting Lab: [address] [address] Performing Lab: [address] [place] HBA1C HEMOGLOBIN A1C/HEMOGLO BIN.TOTAL IN BLOOD 5.8 <6.5 - 6.5 04/15 Specimen Type: BLOOD Comment: Values obtained from A1C measurement s can vary: For typical A1C assays, a reported value of 7.0 could actually be between 6.72 and 7.28 if measured by a reference method. A reported value of 9.0 could actually be between 8.73 and 9.27. Ref: http://www. ngsp.org/[place] Pdata.asp. Target A1c values should be individuali zed. An understandi ng of A1c test result accuracy is essential to interpret results for screening and treatment goals through the process of Shared Decision Making. A1c measurement s meet NGSP specificati ons for accuracy and precision. Contact [phone] if additional information on performance characteris tics is needed. Ordering Provider: STANISLAW GRIGGS Report Released Date/Time: February 11, 2023 05:21 PM Reporting Lab: [facility] [address] [address] Performing Lab: [facility] [address] [place] [address] [facility] TSH WITH REFLEX TO FT4 THYROTROPIN [UNITS/VOLU ME] IN SERUM OR PLASMA 1.64 m[IU]/ L 0.48 - 4 04/15 Specimen Type: SERUM Comment: Standardize d eGFR Interpretat ion: Estimated Glomerular Filtration Rate (eGFR) calculated using the 2020 Chronic Kidney Disease-Epi demiology (CKD-EPI) Collaborati on creatinine equation, units of measure are mL/min/1.73 m2. Results are only valid for adults (>=18 years) whose serum creatinine is in a steady state. eGFR calculation s are not valid for patients with acute kidney injury and for patients on dialysis. Creatinine- based estimates of kidney function may also be inaccurate in patients with reduced creatinine generation due to decreased muscle mass (e.g., malnutritio n, severe hypoalbumin emia, sarcopenia, chronic neuromuscul ar disease, amputations , severe heart failure or liver disease) and in patients with increased creatinine generation due to increased muscle mass (e.g., muscle builders, anabolic steroids) or increased dietary intake. As drug clearance is proportiona l to total GFR and not GFR indexed to body surface area (BSA), in individuals with a BSA substantial ly different than 1.73 m2, drug dosing should be based on the reported eGFR value de-indexed from BSA by multiplying by the individual' s BSA and dividing by 1.73. CKD is diagnosed based on abnormaliti es of kidney structure or function, present for >3 months, with implication s for health and disease. CKD is classified and staged based on cause, eGFR and albuminuria (quantified as urine albumin to creatinine ratio). An eGFR >60 mL/min/1.73 m2 in the absence of increased urine albumin excretion or structural abnormaliti es does not represent CKD. eGFR (mL/min/1.7 3 m2) CKD Stage Interpretat ion >=90 G1 Normal 60-89 G2 Mild decrease 45-59 G3A Mild to moderate decrease 30-44 G3B Moderate to severe decrease 15-29 G4 Severe decrease <15 G5 Kidney failure Direct LDL: See calculated LDL. TSH: TSH normal, FT4 not indicated Ordering Provider: STANISLAW GRIGGS Report Released Date/Time: February 11, 2023 05:21 PM Reporting Lab: [facility] [address] [address] Performing Lab: [facility] [address] [place] [address] [facility] TSH WITH REFLEX TO FT4 THYROXINE (T4) FREE [MASS/VOLUM E] IN SERUM OR PLASMA [facility] 04/15 Specimen Type: SERUM Comment: Standardize d eGFR Interpretat ion: Estimated Glomerular Filtration Rate (eGFR) calculated using the 2020 Chronic Kidney Disease-Epi demiology (CKD-EPI) Collaborati on creatinine equation, units of measure are mL/min/1.73 m2. Results are only valid for adults (>=18 years) whose serum creatinine is in a steady state. eGFR calculation s are not valid for patients with acute kidney injury and for patients on dialysis. Creatinine- based estimates of kidney function may also be inaccurate in patients with reduced creatinine generation due to decreased muscle mass (e.g., malnutritio n, severe hypoalbumin emia, sarcopenia, chronic neuromuscul ar disease, amputations , severe heart failure or liver disease) and in patients with increased creatinine generation due to increased muscle mass (e.g., muscle builders, anabolic steroids) or increased dietary intake. As drug clearance is proportiona l to total GFR and not GFR indexed to body surface area (BSA), in individuals with a BSA substantial ly different than 1.73 m2, drug dosing should be based on the reported eGFR value de-indexed from BSA by multiplying by the individual' s BSA and dividing by 1.73. CKD is diagnosed based on abnormaliti es of kidney structure or function, present for >3 months, with implication s for health and disease. CKD is classified and staged based on cause, eGFR and albuminuria (quantified as urine albumin to creatinine ratio). An eGFR >60 mL/min/1.73 m2 in the absence of increased urine albumin excretion or structural abnormaliti es does not represent CKD. eGFR (mL/min/1.7 3 m2) CKD Stage Interpretat ion >=90 G1 Normal 60-89 G2 Mild decrease 45-59 G3A Mild to moderate decrease 30-44 G3B Moderate to severe decrease 15-29 G4 Severe decrease <15 G5 Kidney failure Direct LDL: See calculated LDL. TSH: TSH normal, FT4 not indicated Ordering Provider: STANISLAW GRIGGS Report Released Date/Time: February 11, 2023 05:21 PM Reporting Lab: [address] [address] Performing Lab: [address] [address] [facility] CBC LEUKOCYTES [#/VOLUME] IN BLOOD BY AUTOMATED COUNT 4.3 10*3/u L 4.5 - 11.0 04/15 L Specimen Type: BLOOD No comment entered. Ordering Provider: STANISLAW GRIGGS Report Released Date/Time: February 11, 2023 05:21 PM Reporting Lab: [address] [address] Performing Lab: [address] [address] [facility] CBC ERYTHROCYTE S [#/VOLUME] IN BLOOD BY AUTOMATED COUNT 5.31 10*6/u L 4.7 - 6.1 04/15 Specimen Type: BLOOD No comment entered. Ordering Provider: STANISLAW GRIGGS Report Released Date/Time: February 11, 2023 05:21 PM Reporting Lab: [address] [address] Performing Lab: [address] [address] [facility] CBC HEMOGLOBIN [MASS/VOLUM E] IN BLOOD 15.9 g/dL 14 - 16 04/15 Specimen Type: BLOOD No comment entered. Ordering Provider: STANISLAW GRIGGS Report Released Date/Time: February 11, 2023 05:21 PM Reporting Lab: [address] [address] Performing Lab: [address] [address] [facility] CBC HEMATOCRIT [VOLUME FRACTION] OF BLOOD BY AUTOMATED COUNT 48.4 40 - 52 08/02 /2023 Specimen Type: BLOOD No comment entered. Ordering Provider: STANISLAW GRIGGS Report Released Date/Time: February 11, 2023 05:21 PM Reporting Lab: [facility] [address] [place] [address] Performing Lab: [facility] [address] [place] [address] [facility] CBC MCV [ENTITIC VOLUME] BY AUTOMATED COUNT 91.1 fL 80 - 99 04/15 Specimen Type: BLOOD No comment entered. Ordering Provider: STANISLAW GRIGGS Report Released Date/Time: February 11, 2023 05:21 PM Reporting Lab: [facility] [address] [place] [address] Performing Lab: [facility] [address] [place] [address] [facility] CBC MCH [ENTITIC MASS] BY AUTOMATED COUNT 30.0 pg 27 - 31 04/15 Specimen Type: BLOOD No comment entered. Ordering Provider: STANISLAW GRIGGS Report Released Date/Time: February 11, 2023 05:21 PM Reporting Lab: [facility] [address] [place] [address] Performing Lab: [facility] [address] [place] [address] [facility] CBC MCHC [MASS/VOLUM E] BY AUTOMATED COUNT 33.0 g/dL 32 - 36 04/15 Specimen Type: BLOOD No comment entered. Ordering Provider: STANISLAW GRIGGS Report Released Date/Time: February 11, 2023 05:21 PM Reporting Lab: [facility] [address] [place] [address] Performing Lab: [facility] [address] [place] [address] [facility] CBC PLATELETS [#/VOLUME] IN BLOOD BY AUTOMATED COUNT 148 10*3/u L 150 - 400 04/15 L Specimen Type: BLOOD No comment entered. Ordering Provider: STANISLAW GRIGGS Report Released Date/Time: February 11, 2023 05:21 PM Reporting Lab: [facility] [address] [place] [address] Performing Lab: [facility] [address] [place] [address] [facility] CBC PLATELET MEAN VOLUME [ENTITIC VOLUME] IN BLOOD BY AUTOMATED COUNT 8.5 fL 7.0 - 11.0 04/15 Specimen Type: BLOOD No comment entered. Ordering Provider: STANISLAW GRIGGS Report Released Date/Time: February 11, 2023 05:21 PM Reporting Lab: [facility] [address] [place] [address] Performing Lab: [address] [address] [facility] CBC ERYTHROCYTE DISTRIBUTIO N WIDTH [RATIO] BY AUTOMATED COUNT 14.7 11.5 - 14.5 04/15 H Specimen Type: BLOOD No comment entered. Ordering Provider: STANISLAW GRIGGS Report Released Date/Time: February 11, 2023 05:21 PM Reporting Lab: [address] [address] Performing Lab: [address] [address] [facility] CBC LYMPHOCYTES /100 LEUKOCYTES IN BLOOD BY AUTOMATED COUNT 45.9 04/15 Specimen Type: BLOOD No comment entered. Ordering Provider: STANISLAW GRIGGS Report Released Date/Time: February 11, 2023 05:21 PM Reporting Lab: [address] [address] Performing Lab: [address] [address] [facility] CBC LYMPHOCYTES [#/VOLUME] IN BLOOD BY AUTOMATED COUNT 2.00 10*3/u L 1.0 - 5.0 04/15 Specimen Type: BLOOD No comment entered. Ordering Provider: STANISLAW GRIGGS Report Released Date/Time: February 11, 2023 05:21 PM Reporting Lab: [facility] [address] [place] [address] Performing Lab: [facility] [address] [place] [address] [facility] CBC MONOCYTES [#/VOLUME] IN BLOOD BY AUTOMATED COUNT 0.50 10*3/u L 0 - 0.8 04/15 Specimen Type: BLOOD No comment entered. Ordering Provider: STANISLAW GRIGGS Report Released Date/Time: February 11, 2023 05:21 PM Reporting Lab: [facility] [address] [address] Performing Lab: [facility] [address] [place] [address] [facility] CBC MONOCYTES/1 00 LEUKOCYTES IN BLOOD BY AUTOMATED COUNT 12.3 04/15 Specimen Type: BLOOD No comment entered. Ordering Provider: STANISLAW GRIGGS Report Released Date/Time: February 11, 2023 05:21 PM Reporting Lab: [facility] [address] [place] [address] Performing Lab: [facility] [address] [place] [address] [facility] CBC NEUTROPHILS [#/VOLUME] IN BLOOD BY AUTOMATED COUNT 1.70 10*3/u L 2 - 7 04/15 L Specimen Type: BLOOD No comment entered. Ordering Provider: STANISLAW GRIGGS Report Released Date/Time: February 11, 2023 05:21 PM Reporting Lab: [facility] [address] [place] [phone] Performing Lab: [facility] [address] [place] [address] [facility] CBC NEUTROPHILS /100 LEUKOCYTES IN BLOOD BY AUTOMATED COUNT 38.4 04/15 Specimen Type: BLOOD No comment entered. Ordering Provider: STANISLAW GRIGGS Report Released Date/Time: February 11, 2023 05:21 PM Reporting Lab: [facility] [address] [address] Performing Lab: [facility] [address] [place] [address] [facility] CBC EOSINOPHILS [#/VOLUME] IN BLOOD BY AUTOMATED COUNT 0.10 10*3/u L 0 - 0.7 04/15 Specimen Type: BLOOD No comment entered. Ordering Provider: STANISLAW GRIGGS Report Released Date/Time: February 11, 2023 05:21 PM Reporting Lab: [facility] [address] [address] Performing Lab: [facility] [address] [place] [address] [facility] CBC EOSINOPHILS /100 LEUKOCYTES IN BLOOD BY AUTOMATED COUNT 2.8 04/15 Specimen Type: BLOOD No comment entered. Ordering Provider: STANISLAW GRIGGS Report Released Date/Time: February 11, 2023 05:21 PM Reporting Lab: [facility] [address] [place] [address] Performing Lab: [facility]) [address] [place] [phone] [facility] CBC BASOPHILS [#/VOLUME] IN BLOOD BY AUTOMATED COUNT 0.00 10*3/u L 0 - 0.2 04/15 Specimen Type: BLOOD No comment entered. Ordering Provider: STANISLAW GRIGGS Report Released Date/Time: February 11, 2023 05:21 PM Reporting Lab: [facility]) [address] [place] [phone] Performing Lab: [facility]) [address] [place] [phone] [facility] CBC BASOPHILS/1 00 LEUKOCYTES IN BLOOD BY AUTOMATED COUNT 0.6 04/15 Specimen Type: BLOOD No comment entered. Ordering Provider: STANISLAW GRIGGS Report Released Date/Time: February 11, 2023 05:21 PM Reporting Lab: [facility] ([facility]) [address] [place] [id number] Performing Lab: [address] [id number] [facility] Vital Signs Combined list of inpatient and outpatient Vital Signs from Department of Defense and Veterans Affairs, ranging from 12 months to all on record, depending upon the facility. Vital Sign Value Date Comments Source SYSTOLIC BLOOD PRESSURE 138 08/03/2024 12:51:27 [place] DIASTOLIC BLOOD PRESSURE 80 08/03/2024 12:51:27 [place] PULSE OXIMETRY 98 08/03/2024 12:51:27 [place] WEIGHT 166 08/03/2024 12:51:27 [place] BMI 25kg/m2 08/03/2024 12:51:27 [place] PULSE 80 08/03/2024 12:51:27 [place] SYSTOLIC BLOOD PRESSURE 119 02/10/2024 09:07:06 [place] DIASTOLIC BLOOD PRESSURE 76 02/10/2024 09:07:06 [place] PULSE OXIMETRY 98 02/10/2024 09:07:06 [place] WEIGHT 167 02/10/2024 09:07:06 [place] BMI 25kg/m2 02/10/2024 09:07:06 [place] TEMPERATURE 97.7 02/10/2024 09:07:06 [place] PULSE 70 02/10/2024 09:07:06 [place] RESPIRATION 18 02/10/2024 09:07:06 [place] SYSTOLIC BLOOD PRESSURE 135 12/11/2023 14:02:53 [place] DIASTOLIC BLOOD PRESSURE 79 12/11/2023 14:02:53 [place] PULSE OXIMETRY 96 12/11/2023 14:02:53 [place] WEIGHT 171 12/11/2023 14:02:53 [place] BMI 26kg/m2 12/11/2023 14:02:53 [place] HEIGHT 68 12/11/2023 14:02:53 [place] TEMPERATURE 98.6 12/11/2023 14:02:53 [place] PULSE 84 12/11/2023 14:02:53 [place] Encounters Combined list of: 1) Encounters from Department of Veterans Affairs facilities going back up to thelast 18 months. 2) Encounters from the Department of Defense facilities going back up to 280 months. Location Location Details Encounter Type Encounter Number Reason For Visit Attending Provider ADM Date DC Date Status Disposition Source [facility] OFFICE O/P EST MOD 30-39 MIN [id number] Diagnos is: ICD-10- CM I25.10 Athscl heart disease of [place] coronar y artery w/o ang pctrs<b r/> WILLIAM GRIGGS 04/22 [facility] En[facility] [id number] 04/23 [facility] Outpatient Encounter 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
GLORSKY,ST EVEN L 06/19 [facility] Outpatient Encounter [id number] 06/19 [facility] Outpatient Encounter [id number] 06/21 [facility] OFFICE O/P EST MOD 30-39 MIN [id number] Diagnos is: ICD-10- CM I25.10 Athscl heart disease of [place] coronar y artery w/o ang pctrs<b r/> WILLIAM GRIGGS LLIAM G 07/21 [facility] [place] [facility] Outpatient Encounter [id number] 09/14 [facility] [place] [facility] [place] [facility] Outpatient Encounter [id number] 11/19 [facility] [place] [facility] [place] [facility] Outpatient Encounter [id number] 11/22 [facility] [place] [facility] OFFICE O/P NEW MOD 45 MIN [id number] Diagnos is: ICD-10- CM I10 Essenti al (primar y) hyperte nsion<b r/> STELEA,CAR MEN F 12/10 [place] [facility] [place] [facility] Outpatient Encounter [id number] 12/10 [facility] [place] [facility] QNHP OL DIG ASSMT&MGMT 5-10 [id number] Diagnos is: ICD-10- CM Z04.89 Encount er for examina tion and observa tion for oth reasons
[address]BI [address] J 12/20 [facility] [place] [facility] Outpatient Encounter [id number] 02/03 [facility] [place] [facility] OFFICE O/P EST MOD 30 MIN [id number] Diagnos is: ICD-10- CM R73.03 Prediab etes
COREYA,CAR MEN F 02/09 [facility] En[facility] [id number] 02/[address] [facility] [place] [facility] Outpatient Encounter [id number] 03/18 [facility] [place] Encounter [id number] 05/02 [facility] [place] [facility] Outpatient Encounter [id number] 05/03 [facility] [place] Out[facility] Encounter [id number] 05/04 [facility] [place] Out[facility] Encounter [id number] 05/11 [facility] [place] Outpatient Encounter [id number] 05/15 [facility] [place] [facility] [place] [facility] Outpatient Encounter [id number] 05/30 [facility] [place] [facility] [place] [facility] Outpatient Encounter [id number] 07/21 [facility] [place] [facility] [place] OFF[facility] O/P EST MOD 30 MIN [id number] Diagnos is: ICD-10- CM J45.909 Unspeci fied asthma, uncompl icated< br/> RUSS SIMON C 08/03 [facility] Social History Combined list of available smoking, tobacco, and other social history from Department of Defense and Veterans Affairs facilities. Social History Type Response Date Comment Sourc e Tobacco smoking status [facility] VA-TOBACCO NEVER USED 12/11/2023 [facility] History of tobacco use VA-TOBACCO NEVER USED 04/22/2023 [facility] History of tobacco use VA-TOBACCO NEVER USED 03/25/2022 [facility] History of tobacco use VA-TOBACCO NEVER USED 03/27/2021 [facility] History of tobacco use VA-TOBACCO NEVER USED 07/08/2019 [facility] History of tobacco use VA-TOBACCO NEVER USED 06/23/2018 [facility] Plan of Care List of future care activities from Department of Veterans Affairs facilities. Additional future care activities may be listed in the Assessment and Plan section. Date/Time Care Activity Care Activity Detail Facili ty 01/31/2025 AMBULATORY - MEDICINE AMBULATORY - MEDICI [facility]
--- OUTSIDE RECORDS SUMMARY | 2024-09-27 16:46 | XMS_ITS | Encounter Summary ---
Author Name [facility] Address [address] [place] [address] Care Team Providers Care Screen Making Supervisor Name Role Phone EYAD SIMON Primary Care [...] SUPP Aug 14, 2013 MEDICAR E SUPP [id number] [phone] JOEL PERRY STAVE PATIENT MEDICARE (WNR) MEDICARE (M) PART B Aug 14, 2012 PART B [id number] PERRYJOEL STAVE PATIENT MEDICARE (WNR) MEDICARE (M) PART B Aug 14, 2012 PART B [id number] [phone] JOEL PERRY STAVE PATIENT MEDICARE (WNR) MEDICARE (M) PART A Dec 13, 2010 PART A [id number] PERRYJOEL STAVE PATIENT MEDICARE (WNR) MEDICARE (M) PART A Dec 13, 2010 PART A [id number] [phone] JOEL PERRY PATIENT MEDICARE (WNR) MEDICARE (M) PART A Dec 13, 2010 PART A [id number] JOEL PERRY PATIENT [facility] Aug 14, 2013 [id number] JOEL PERRY PATIENT Selected Encounter This section includes the information on record at [place] for the Encounter. Date/Time Encounter Type Encounter Description Reason Pro vider Source Dec 11, 2023 03:15 PM Outpatient Encounter PRIMARY CARE/MEDICINE IHE Encounter Template Text not used by [place] Plan of Treatment: Future Appointments (+ 6 months) and Future Tests (+/- 45 days) The Plan of Treatment section includes future care activities for the patient from all [place] treatmentfacilities. This section includes future appointments and future orders which are active, pending or scheduled. Future Appointments This section includes appointments that were scheduled to occur 6 months from the date of the Encounter, up to a maximum of 20 appointments. The data comes from all [place] treatment facilities. Appointment Date/Time Appointment Type Appointme nt Facility Name February 10, 2024 09:00 AM AMBULATORY - MEDICINE [facility] Encounter Notes: All associated encounter notes This section contains the clinical notes associated to the Encounter. Date/Time Encounter Note(s) Provider Source Dec 11, 2023 03:15 PM CLINICAL WARNING: LOCAL TITLE: COMMUNICATION AUTHORIZATION STANDARD TITLE: CLINICAL WARNING DATE OF NOTE: DEC 11, 2023@15:15 ENTRY DATE: DEC 11, 2023@15:15:33 AUTHOR: PANDA SKINNER EXP COSIGNER: URGENCY: STATUS: COMPLETED Family/Caregiver Name: Primary: Cleopatra Crandall Secondary: Luis Manuel James Tertiary: Jenna Perry Authorized Clinic & Topics: All Clinic's & Topics: All Care/Coordination, Scheduling Appointments, Prescriptions, Test Results, Other: Primary Care: All Care/Coordination, Scheduling Appointments, Prescriptions, Test Results, Other: Mental Health: All Care/Coordination, Scheduling Appointments, Prescriptions, Test Results, Other: Specialty Care: All Care/Coordination, Scheduling Appointments, Prescriptions, Test Results, Other: [id number] Protected Info: [ ] Drug Abuse [ ] Alcohol Abuse [ ] HIV [ ] Sickle Cell Expiration: Date: [X] At [ ] Through [ ] At end of care /alta/ MARIIA SKINNER Advanced Starch Treating Assistant Signed: 12/11/2023 15:17 MARIIA SKINNER
--- OUTSIDE RECORDS SUMMARY | 2024-09-27 16:47 | XMS_ITS | Encounter Summary ---
Author Name [facility] [place] Address [address] [place] [id number] Care Team Providers Care Open Source Developer Name Role Phone EYAD SIMON Primary [...] SUPP Aug 14, 2013 MEDICAR E SUPP [id number] JOEL PERRY STAVE PATIENT MEDICARE (WNR) MEDICARE (M) PART B Aug 14, 2012 PART B [id number] [phone] JOEL PERRY STAVE PATIENT MEDICARE (WNR) MEDICARE (M) PART B Aug 14, 2012 PART B [id number] [phone] JOEL PERRY STAVE PATIENT MEDICARE (WNR) MEDICARE (M) PART A Dec 13, 2010 PART A [id number] JOEL PERRY STAVE PATIENT MEDICARE (WNR) MEDICARE (M) PART A Dec 13, 2010 PART A [id number] JOEL PERRY PATIENT MEDICARE (WNR) MEDICARE (M) PART A Dec 13, 2010 PART A [id number] JOEL PERRY PATIENT [facility] Aug 14, 2013 [id number] JOEL PERRY PATIENT Selected Encounter This section includes the information on record at [place] for the Encounter. Date/Time Encounter Type Encounter Description Reason Provider Source Aug 03, 2024 01:00 PM OFFICE O/P EST MOD 30 MIN PRIMARY CARE/MEDICINE ICD-10-CM J45.909 Unspecified asthma, uncomplicated PALOMO SIMON Elijah Encounter Template Text not used by MD Assessments - Encounter Diagnoses This section includes the primary and secondary diagnoses documented for the Encounter. Date/Time Primary/Secondary Diagnosis Diagnosis Name Provider Source Aug 14, 2024 01:58 PM PRIMARY Unspecified asthma, uncomplicated EYAD SIMON [place] Aug 14, 2024 01:58 PM SECONDARY Allergic rhinitis, unspecified EYAD SIMON [place] Aug 14, 2024 01:58 PM SECONDARY Athscl heart disease of [place] coronary artery w/o ang pctrs EYAD SIMON [place] Aug 14, 2024 01:58 PM SECONDARY Chronic kidney disease, unspecified EYAD SIMON [place] Aug 14, 2024 01:58 PM SECONDARY Essential (primary) hypertension EYAD SIMON [place] Aug 14, 2024 01:58 PM SECONDARY Hyperlipidemia, unspecified EYAD SIMON [place] Aug 14, 2024 01:58 PM SECONDARY 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 This section includes future appointments and future orders which are active, pending or scheduled. Future Appointments This section includes appointments that were scheduled to occur 6 months from the date of the Encounter, up to a maximum of 20 appointments. The data comes from all [place] treatment facilities. Appointment Date/Time Appointment Type Appointme nt Facility Name January 31, 2025 09:00 AM AMBULATORY - MEDICINE [facility] Vital Signs: All taken on the encounter date This section contains inpatient and outpatient Vital Signs collected on the date of the Encounter. Date/Time Temperature Pulse Blood Pressure Respiratory Rate SP02 Pain Height Weight Body Mass Index Source Aug 03, 2024 12:51 PM 80 138/80 98 166 25 [facility] Social History: Smoking Status (Most current) and Tobacco Use (All prior to encounter date) This section includes the most current, and the historical, smoking and tobacco- related health factors from the MD facility where the Encounter took place. Current Smoking Status This section includes the most current smoking, or tobacco-related health factor, from the MD facility where the Encounter took place. Date/Time Current Smoking Status Comment Nile rushing Dec 11, 2023 02:00 PM VA-TOBACCO NEVER USED [place] Encounter Notes: All associated encounter notes This section contains the clinical notes associated to the Encounter. Date/Time Encounter Note(s) Provider Source Aug 03, 2024 01:02 PM PRIMARY CARE NURSE PRACTITIONER OUTPATIENT NOTE: LOCAL TITLE: NURSE PRACTITIONER OUTPATIENT NOTE STANDARD TITLE: PRIMARY CARE NURSE PRACTITIONER OUTPATIENT NOTE DATE OF NOTE: AUG 03, 2024@13:02 ENTRY DATE: AUG 03, 2024@13:02:59 AUTHOR: EYAD SIMON EXP COSIGNER: URGENCY: STATUS: COMPLETED PRIMARY CARE VISIT ANDRES PERRY, is a 79 y/o WHITE MALE [place] who [facility]. TYPE OF VISIT: Face to face HPI: prediabetes - A1c 5.8. Is working on his diet. Not on Rx. CKD stage 3 - GFR 48 AFib, CAD, HLD with hx CABG. No hx [place]. On Eliquis. HTN - stable on Rx. Followed by cardiology. Denies chest pain, palpitations, peripheral edema. Seasonal allergies with asthma - has inhalers in place. eczema on hands - intermittent. Uses topical steroid PRN. All medications were reconciled during this visit. 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 Mental Status: Alert and oriented x4. Neck: Supple. No lymphadenopathy. No bruit. Thyroid unremarkable. Lungs: CTAB. Normal chest excursion. Eupneic respirations. CV: Heart tones S1, S2. RRR. No M/G/R. No peripheral edema. GI: Abdomen is soft and nontender. No palpable mass or organomegaly. Neuro: CN II through XII grossly intact. Normal speech. Normal gait. Skin: Faint eczematous rash to webs of b/l fingers. Psych: Normal mood and affect. Normal judgment. Cooperative with exam, follows commands. ALLERGIES: POLLEN, MELONS, PENICILIN VK HEALTH MAINTENANCE - see end of note PREVENTIVE MEDICINE GOALS Hepatitis C Testing DUE NOW HIV Screening DUE NOW Medication Reconciliation DUE NOW (Optional) Whole Health Documentation DUE NOW ASSESSMENT/PLAN: Active problems - Computerized Problem List is the source for the followin. Atherosclerosis of coronary artery - no hx [place]; has had CABG. Continue Eliquis, management of comorbid conditions. Followed by cardiology. 2. Prediabetes ([facility] [id number]) - A1c 5.8. Continue diet modification. Recheck labs 6-12 months. 3. CKD - chronic kidney disease. GFR stable at 48. Monitor labs, risk vs benefit of nephrotoxic medications. 4. AF - Atrial fibrillation. Continue Eliquis. Followed by cardiology. 5. Long-term current use of anticoagulant. At high risk for bleeding complications, monitor closely. 6. HTN - Hypertension ([facility] [id number]). Stable, continue Rx. 7. Hyperlipidemia ([facility] [id number]) - community PCP manages labs. Continue statin therapy until risk > benefit. At high risk for vascular event. 8. Allergic Rhinitis ([facility] [id number]) - continue Rx, add Singulair to POC. 9. Allergic asthma - see above. Avoid triggers when able. 10. Eczema - continue topical therapy PRN 11. Osteopenia - discussed DEXA results. Add Fosamax weekly for 3-5 years. Recommend continuing weight bearing activities as able. At high risk for fracture. FOLLOW UP: Return to clinic as noted below and/or sooner PRN UPCOMING APPOINTMENTS: No data available No barriers noted; patient understands and agrees to current treatment plan. If patient has any questions, concerns or changes in current health status he/she will call or come in to the [facility]. HM: Medication Reconciliation: Outpatient: Has the patient been taking medications as documented in the EMLR? YES: The patient has been taking medications as documented in the EMLR. Essential Medication List for Review used to complete this medication reconciliation. INCLUDED IN THIS LIST: Alphabetical list of active outpatient prescriptions dispensed from this MD (local) and dispensed from another MD or DoD facility (remote) as well as [...] whether with a VA or non-VA provider. COVID-19 Immunization: Refused Moderna Monovalent COVID-19 vaccine Immunization: COVID-19 (MODERNA), MRNA, LNP-S, PF, 50 MCG/0.5 ML (AGES 12+ YEARS) Refusal Reason: PATIENT DECISION Patient refuses all immunization(s) in the COVID-19 group Date Documented: 08/14/24 13:44 /alta/ NOEL BECKETT CERTIFIED NURSE PRACTITIONER Signed: 08/14/2024 13:59 EYAD SIMON [place] Aug 03, 2024 12:51 PM PREVENTIVE MEDICIN E NURSING NOTE: LOCAL TITLE: CLINICAL REMINDERS/NURSING STANDARD TITLE: PREVENTIVE MEDICINE NURSING NOTE DATE OF NOTE: AUG 03, 2024@12:51 ENTRY DATE: AUG 03, 2024@12:51:57 AUTHOR: WILIAN KAPOOR COSIGNER: URGENCY: STATUS: COMPLETED Pneumococcal Conjugate Vaccine (PCV15/PCV20): Refuses PCV vaccine Immunization: PNEUMOCOCCAL CONJUGATE, UNSPECIFIED FORMULATION Refusal Reason: PATIENT DECISION Patient refuses all immunization(s) in the PneumoPCV group Date Documented: 08/03/24 12:52 Influenza Immunization: The patient has received the seasonal influenza vaccine for the current season at another location. Documented: INFLUENZA, UNSPECIFIED FORMULATION Historical Date Administered: May 2024 Exact date unknown Outside Location: Outside Healthcare Provider Information Source: SOURCE UNSPECIFIED Tdap Immunization: The patient declines to receive the recommended dose of Tdap vaccine. Immunization: TDAP Refusal Reason: PATIENT DECISION Patient refuses all immunization(s) in the TDAP group Date Documented: 08/03/24 12:52 Herpes Zoster (Shingles) Vaccine: The patient declines to receive the recommended dose of zoster (shingles) vaccine. Immunization: ZOSTER RECOMBINANT Refusal Reason: PATIENT DECISION Patient refuses all immunization(s) in the ZOSTER group Date Documented: 08/03/24 12:52 Eye Care At-Risk Screen : Patient identified to be at risk for the following eye condition(s): MACULAR DEGENERATION: Macular Degeneration Risk Factors Information: Reminder Term: VA-AMD RISK FACTORS Problem Diagnosis: 07/29/2024 I25.10 (ICD-10-CM) Atherosclerotic Heart Disease of [place] Coronary Artery without Angina Pectoris Date Entered: 07/29/2024; Date Last Modified: 07/29/2024 Status: ACTIVE; Priority: UNDEFINED Prov. Narr. - Atherosclerosis of coronary artery Action: No Referral Ordered: Eye exam completed elsewhere by an I&C Tech or Chalk Molding Machine Operator Exam Information: Date: 2023 ? Exact date is unknown Findings/Comment vet f/u with outside eyecare Location: Outside Healthcare Provider /es/ WILIAN KAPOOR LPN Licensed Practical Nurse Signed: 08/03/2024 12:53 WILIAN KAPOOR [place]
--- OUTSIDE RECORDS SUMMARY | 2024-09-27 16:47 | XMS_ITS | Encounter Summary ---
Author Name [facility] [facility] [place] [facility] [place] Address [address] [place] [address] Care Team Providers Care Dev Ops Engineer Name Role Phone EYAD SIMON Primary Care [...] SUPP Aug 14, 2013 MEDICAR E SUPP [id number] JOEL PERRY PATIENT MEDICARE (WNR) MEDICARE (M) PART B Aug 14, 2012 PART B [id number] [phone] JOEL PERRY STAVE PATIENT MEDICARE (WNR) MEDICARE (M) PART B Aug 14, 2012 PART B [id number] JOEL PERRY PATIENT MEDICARE (WNR) MEDICARE () PART A Dec 13, 2010 PART A [id number] JOEL PERRY STAVE PATIENT MEDICARE (WNR) MEDICARE (M) PART A Dec 13, 2010 PART A [id number] JOEL PERRY PATIENT MEDICARE (WNR) MEDICARE (M) PART A Dec 13, 2010 PART A [id number] [phone] JOEL PERRY PATIENT [facility] Aug 14, 2013 [id number] JOEL PERRY PATIENT Selected Encounter This section includes the information on record at [place] for the Encounter. Date/Time Encounter Type Encounter Description Reason Pro vider Source May 04, 2024 10:04 AM Outpatient Encounter ADMIN PAT ACTIVTIES (MASNONCT) IHE Encounter Template Text not used by [place] Plan of Treatment: Future Appointments (+ 6 [...] 03, 2024 01:00 PM AMBULATORY - MEDICINE [facility] Encounter Notes: All associated encounter notes This section contains the clinical notes associated to the Encounter. Date/Time Encounter Note(s) Provider Source May 04, 2024 10:04 AM ADMINISTRATIVE NOTE: LOCAL TITLE: CCC: SCHEDULING ADMINISTRATION STANDARD TITLE: ADMINISTRATIVE NOTE DATE OF NOTE: MAY 04, 2024@10:04:46 ENTRY DATE: MAY 04, 2024@10:04:47 AUTHOR: ADAM EVANS EXP COSIGNER: URGENCY: STATUS: COMPLETED CCC: SCHEDULING ADMINISTRATION Has ADDENDA Patient Demographics Patient Name: ANDRES PERRY Patient Primary Phone: [phone] Patient Primary Address: [address] [place] [address] [place] [id number] Patient : 1945 Patient Age: 79 Caller/Recipient Relation to Patient: Self Administrative Administrative Note Reason: Other Administrative Note Comments: requesting a call back today as he has been trying to get in touch with [facility], called multiple days see notes dated 05/02, 05/03, and is calling today as requesting a call today. Tricot Knitting Machine Operator notified that it could take 72hours however reports this is time critical due to the nature of the request and only has until tmrw to do the labs. can be reached at number on file. IMPORTANT: This note was created by [facility] Clinical Contact Center staff. Please do not alert the staff member by adding them as a signer for future communications. Alerts are not monitored by this user. /alta/ ADAM EVANS Advanced Certified Medical Coding Specialist Signed: 05/04/2024 10:04 Receipt Acknowledged By: 05/19/2024 12:01 /alta/ ROSA ELENA LEVI RN-BC REGISTERED NURSE 05/12/2024 11:00 /alta/ WILIAN KAPOOR LPN Licensed Practical Nurse 05/19/2024 ADDENDUM STATUS: COMPLETED Author has spoken with and advised of lab orders in place. /ROSA ELENA Cordon RN-BC REGISTERED NURSE Signed: 05/19/2024 12:02 ADAM EVANS [place] [facility]
--- OUTSIDE RECORDS SUMMARY | 2024-09-27 16:47 | XMS_ITS | Encounter Summary ---
Author Name [facility] [place] Organization [facility] Address [address] [place] [address] Care Team Providers Care Factorer Name Role Phone EYAD SIMON Primary Care [...] SUPP Aug 14, 2013 MEDICAR E SUPP [id number] PERRYJOEL STAVE PATIENT MEDICARE (WNR) MEDICARE (M) PART B Aug 14, 2012 PART B [id number] [phone] PERRY,JOEL STAVE PATIENT MEDICARE (WNR) MEDICARE (M) PART B Aug 14, 2012 PART B [id number] JOEL PERRY STAVE PATIENT MEDICARE (WNR) MEDICARE (M) PART A Dec 13, 2010 PART A [id number] [id number] PERRYJOEL STAVE PATIENT MEDICARE (WNR) MEDICARE (M) PART A Dec 13, 2010 PART A [id number] [phone] JOEL PERRY PATIENT MEDICARE (WNR) MEDICARE (M) PART A Dec 13, 2010 PART A [id number] [phone] JOEL PERRY PATIENT [facility] Aug 14, 2013 [id number] JOEL PERRY PATIENT Selected Encounter This section includes the information on record at [place] for the Encounter. Date/Time Encounter Type Encounter Description Reason Pro vider Source May 15, 2024 12:00 AM Outpatient Encounter EVENT (HISTORICAL) IHE Encounter Template Text not used by [place] Plan of Treatment: Future Appointments (+ 6 months) and Future Tests (+/- 45 days) The Plan of Treatment section includes future care activities for the patient from all [place] treatmentfacilities. This section includes future appointments and future orders which are active, pending or scheduled. Future Appointments This section includes appointments that were scheduled to occur 6 months from the date of the Encounter, up to a maximum of 20 appointments. The data comes from all [place] treatment facilities. Appointment Date/Time Appointment Type Appointme nt Facility Name Aug 03, 2024 01:00 PM AMBULATORY - MEDICINE [facility] Immunizations: All administered on the encounter date This section contains immunizations associated to the Encounter. Immunization Series Date Issued Reaction Comments INFLUENZA, UNSPECIFIED FORMULATION May 15, 2024
--- OUTSIDE RECORDS SUMMARY | 2024-09-27 16:47 | XMS_ITS | Encounter Summary ---
Author Name [facility] [facility] [place] [facility] [place] Address [address] [place] [address] Care Team Providers Care Cake Washer Name Role Phone EYAD SIMON Primary Care [...] SUPP Aug 14, 2013 MEDICAR E SUPP [id number] JOEL PERRY PATIENT MEDICARE (WNR) MEDICARE (M) PART B Aug 14, 2012 PART B [id number] JOEL PERRY STAVE PATIENT MEDICARE (WNR) MEDICARE (M) PART B Aug 14, 2012 PART B [id number] [phone] JOEL PERRY PATIENT MEDICARE (WNR) MEDICARE () PART A Dec 13, 2010 PART A [id number] JOEL PERRY STAVE PATIENT MEDICARE (WNR) MEDICARE (M) PART A Dec 13, 2010 PART A [id number] JOEL PERRY PATIENT MEDICARE (WNR) MEDICARE (M) PART A Dec 13, 2010 PART A [id number] JOEL PERRY PATIENT [facility] Aug 14, 2013 [id number] JOEL PERRY PATIENT Selected Encounter This section includes the information on record at [place] for the Encounter. Date/Time Encounter Type Encounter Description Reason Pro vider Source Mar 18, 2024 05:30 PM Outpatient Encounter ADMIN PAT ACTIVTIES (MASNONCT) IHE Encounter Template Text not used by [place] Plan of Treatment: Future Appointments (+ 6 months) and Future Tests (+/- 45 days) The Plan of Treatment section includes future care activities for the patient from all [place] treatmentfacilities. This section includes future appointments and future orders which are active, pending or scheduled. Future Appointments This section includes appointments that were scheduled to occur 6 months from the date of the Encounter, up to a maximum of 20 appointments. The data comes from all [place] treatment facilities. Appointment Date/Time Appointment Type Appointme nt Facility Name Aug 03, 2024 01:00 PM AMBULATORY - MEDICINE [facility] Encounter Notes: All associated encounter notes This section contains the clinical notes associated to the Encounter. Date/Time Encounter Note(s) Provider Source Mar 18, 2024 05:30 PM PHARMACY NOTE: LOCAL TITLE: PHARMACY CUSTOMER CARE MEDICATION RENEWAL STANDARD TITLE: PHARMACY NOTE DATE OF NOTE: MAR 18, 2024@17:30 ENTRY DATE: MAR 18, 2024@17:30:09 AUTHOR: DANIELLA APPIAH EXP COSIGNER: URGENCY: STATUS: COMPLETED Date: Mar Division: [place] Pt referred by Pharmacy Call Center for medication renewal: Non-controlled/maintenan ce medication Medications requested: $ METOPROLOL TARTRATE 100MG TAB [id number]$ LOSARTAN 100MG TAB [id number]$ HCTZ 25/TRIAMTERENE 37.5MG TAB [id number]$ FLUTICAS 100/SALMETEROL 50 INHL DISK 60 [id number]$ FLUTICASONE PROP 50MCG 120D NASAL INHL [id number]$ BETAMETHASONE DIPROPIONATE 0.05% OINT [id number]$ ATORVASTATIN CALCIUM 80MG T [id number]$ ALBUTEROL 90MCG (CFC-F) 200D ORAL INHL [id number]$ APIXABAN 5MG TAB Defer to primary care provider To be mailed. Please review and renew if appropriate. *This note was generated by [facility]/[place] Pharmacy Customer Care. If you have any questions or need assistance, do not contact this author. Please refer all questions to your local, on-site pharmacy departments. /alta/ Daniella Appiah CPhT [employer] [place], [place]/Pharmacy Customer Care Signed: 03/18/2024 17:30 Receipt Acknowledged By: 03/22/2024 10:21 /es/ KAMILLE LEVIN RN-BC REGISTERED NURSE 03/24/2024 09:58 /alta/ CHANDANA SORIANO MD PRIMARY CARE PHYSICIAN DANIELLA APPIAH [place] [facility]
--- OUTSIDE RECORDS SUMMARY | 2024-09-27 16:47 | XMS_ITS | Encounter Summary ---
Author Name [facility] Organization [facility] Address [address] [place] [address] Care Team Providers Care Ui Software Developer Name Role Phone EYAD SIMON Primary [...] SUPP Aug 14, 2013 MEDICAR E SUPP [id number] [phone] JOEL PERRY STAVE PATIENT MEDICARE (WNR) MEDICARE (M) PART B Aug 14, 2012 PART B [id number] [id number] PERRYJOEL STAVE PATIENT MEDICARE (WNR) MEDICARE (M) PART B Aug 14, 2012 PART B [id number] JOEL PERRY STAVE PATIENT MEDICARE (WNR) MEDICARE (M) PART A Dec 13, 2010 PART A [id number] [id number] PERRYJOEL STAVE PATIENT MEDICARE (WNR) MEDICARE (M) PART A Dec 13, 2010 PART A [id number] [phone] JOEL PERRY PATIENT MEDICARE (WNR) MEDICARE (M) PART A Dec 13, 2010 PART A [id number] JOEL PERRY PATIENT [facility] Aug 14, 2013 [id number] JOEL PERRY PATIENT Selected Encounter This section includes the information on record at [place] for the Encounter. Date/Time Encounter Type Encounter Description Reason Pro vider Source May 30, 2024 03:50 PM Outpatient Encounter PRIMARY CARE/MEDICINE IHE Encounter Template Text not used by [place] Plan of Treatment: Future Appointments (+ 6 months) and Future Tests (+/- 45 days) The Plan of Treatment section includes future care activities for the patient from all [place] treatmentfacilities. This section includes future appointments and future orders which are active, pending or scheduled. Future Appointments This section includes appointments that were scheduled to occur 6 months from the date of the Encounter, up to a maximum of 20 appointments. The data comes from all [place] treatment facilities. Appointment Date/Time Appointment Type Appointme nt Facility Name Aug 03, 2024 01:00 PM [facility] Encounter Notes: All associated encounter notes This section contains the clinical notes associated to the Encounter. Date/Time Encounter Note(s) Provider Source May 30, 2024 03:50 PM ADMINISTRATIVE NOT E: LOCAL TITLE: ADMINISTRATIVE NOTE STANDARD TITLE: ADMINISTRATIVE NOTE DATE OF NOTE: MAY 30, 2024@15:50 ENTRY DATE: MAY 30, 2024@15:50:42 AUTHOR: EBONY DIAZ COSIGNER: URGENCY: STATUS: COMPLETED THIS PARK NATURALIST HAD SPOKEN TO TO RESCHEDULE F2F CX CL APPT WITH CWM/SO/PACT EIGHT PROVIDER ON 08/03/2024 AT 13:00 FOR CKD, PREDIABETES, LOW WBC, PLATELETS. /alta/ DEMARCO DIAZ ADVANCED PACKAGING DESIGNER Signed: 05/30/2024 15:52 DEMARCO DIAZ [place]
--- OUTSIDE RECORDS SUMMARY | 2024-09-27 16:47 | XMS_ITS | Encounter Summary ---
Author Name [facility] [place] [facility] [place] [facility] [place] Address [address] [place] [address] Care Team Providers Care Child Adolescent Care Name Role Phone EYAD SIMON Primary Care [...] SUPP Aug 14, 2013 MEDICAR E SUPP [id number] JOEL PERRY PATIENT MEDICARE (WNR) MEDICARE (M) PART B Aug 14, 2012 PART B [id number] JOEL PERRY STAVE PATIENT MEDICARE (WNR) MEDICARE (M) PART B Aug 14, 2012 PART B [id number] [phone] JOEL PERRY PATIENT MEDICARE (WNR) MEDICARE () PART A Dec 13, 2010 PART A [id number] [phone] JOEL PERRY STAVE PATIENT MEDICARE (WNR) MEDICARE (M) PART A Dec 13, 2010 PART A [id number] JOEL PERRY PATIENT MEDICARE (WNR) MEDICARE (M) PART A Dec 13, 2010 PART A [id number] JOEL PERRY PATIENT [facility] Aug 14, 2013 [id number] [phone] JOEL PERRY PATIENT Selected Encounter This section includes the information on record at [place] for the Encounter. Date/Time Encounter Type Encounter Description Reason Pro vider Source May 02, 2024 03:48 PM Outpatient Encounter ADMIN PAT ACTIVTIES (MASNONCT) IHE Encounter Template Text not used by [place] Plan of Treatment: Future Appointments (+ 6 months) and Future Tests (+/- 45 days) The Plan of Treatment section includes future care activities for the patient from all [place] treatmentfacilities. This section includes future appointments and future orders which are active, pending or scheduled. Future Appointments This section includes appointments that were scheduled to occur 6 months from the date of the Encounter, up to a maximum of 20 appointments. The data comes from all [place] treatment facilities. Appointment Date/Time Appointment Type Appointme nt Facility Name Aug 03, 2024 01:00 PM AMBULATORY - MEDICINE [facility] Encounter Notes: All associated encounter notes This section contains the clinical notes associated to the Encounter. Date/Time Encounter Note(s) Provider Source May 02, 2024 03:48 PM ADMINISTRATIVE NOT E: LOCAL TITLE: CCC: SCHEDULING ADMINISTRATION STANDARD TITLE: ADMINISTRATIVE NOTE DATE OF NOTE: MAY 02, 2024@15:48:46 ENTRY DATE: MAY 02, 2024@15:48:46 AUTHOR: CINDY TESFAYE EXP COSIGNER: URGENCY: STATUS: COMPLETED Patient Demographics Patient Name: ANDRES PERRY Patient Primary Phone: [phone] Patient Primary [address]: [address] [place] [id number] Patient : 1945 Patient Age: 79 Call Back Number: [phone] Caller/Recipient Relation to Patient: Self Administrative Administrative Note Reason: Other Administrative Note Comments: kindly requesting Fasting Lab Orders be placed and a call back from [facility] to confirm Lab orders have been placed. IMPORTANT: This note was created by [facility] Clinical Contact Center staff. Please do not alert the staff member by adding them as a signer for future communications. Alerts are not monitored by this user. /alta/ CINDY TESFAYE [facility]IS[facility] Signed: 05/02/2024 15:48 Receipt Acknowledged By: 05/03/2024 13:46 /es/ KAMILLE LEVIN RN- REGISTERED NURSE 05/03/2024 14:51 /es/ AROLDO MAC LPN CUT OFF OPERATOR SCORER for CINDY HILARIO [place] [facility]
--- OUTSIDE RECORDS SUMMARY | 2024-09-27 16:47 | XMS_ITS | Encounter Summary ---
Author Name [facility] [place] Address [address] [place] [address] Care Team Providers Care Telesales Specialist Name Role Phone EYAD SIMON Primary Care [...] SUPP Aug 14, 2013 MEDICAR E SUPP [id number] JOEL PERRY STAVE PATIENT MEDICARE (WNR) MEDICARE (M) PART B Aug 14, 2012 PART B [id number] PERRYJOEL STAVE PATIENT MEDICARE (WNR) MEDICARE (M) PART B Aug 14, 2012 PART B [id number] [phone] JOEL PERRY STAVE PATIENT MEDICARE (WNR) MEDICARE (M) PART A Dec 13, 2010 PART A [id number] [phone] PERRYJOEL STAVE PATIENT MEDICARE (WNR) MEDICARE (M) PART A Dec 13, 2010 PART A [id number] [phone] JOEL PERRY PATIENT MEDICARE (WNR) MEDICARE (M) PART A Dec 13, 2010 PART A [id number] JOEL PERRY PATIENT [facility] Aug 14, 2013 [id number] JOEL PERRY PATIENT Selected Encounter This section includes the information on record at [place] for the Encounter. Date/Time Encounter Type Encounter Description Reason Pro vider Source May 11, 2024 01:28 PM Outpatient Encounter PRIMARY CARE/MEDICINE IHE Encounter Template Text not used by [place] Plan of Treatment: Future Appointments (+ 6 months) and Future Tests (+/- 45 days) The Plan of Treatment section includes future care activities for the patient from all [place] treatmentfacilities. This section includes future appointments and future orders which are active, pending or scheduled. Future Appointments This section includes appointments that were scheduled to occur 6 months from the date of the Encounter, up to a maximum of 20 appointments. The data comes from all [place] treatment facilities. Appointment Date/Time Appointment Type Appointme nt Facility Name Aug 03, 2024 01:00 PM [facility] Encounter Notes: All associated encounter notes This section contains the clinical notes associated to the Encounter. Date/Time Encounter Note(s) Provider Source May 11, 2024 01:28 PM ADMINISTRATIVE NOT E: LOCAL TITLE: ADMINISTRATIVE NOTE STANDARD TITLE: ADMINISTRATIVE NOTE DATE OF NOTE: MAY 11, 2024@13:28 ENTRY DATE: MAY 11, 2024@13:28:32 AUTHOR: EBONY DIAZ COSIGNER: URGENCY: STATUS: COMPLETED THIS WIRE STRANDER HAD SPOKEN TO TO RESCHEDULE F2F APPT WITH CWM/SO/PACT EIGHT PROVIDER ON 05/30/2024 AT 10:30AM FOR CKD, PREDIABETES, LOW WBC, PLATELETS. /alta/ DEMARCO DIAZ ADVANCED DUMP GROUNDS CHECKER Signed: 05/11/2024 13:29 DEMARCO DIAZ [place]
--- OUTSIDE RECORDS SUMMARY | 2024-09-27 16:47 | XMS_ITS | Encounter Summary ---
Author Name [facility] [facility] [place] Address [address] [place] [address] Care Team Providers Care Orchard Hand Name Role Phone EYAD SIMON Primary Care [...] SUPP Aug 14, 2013 MEDICAR E SUPP [id number] JOEL PERRY PATIENT MEDICARE (WNR) MEDICARE (M) PART B Aug 14, 2012 PART B [id number] JOEL PERRY STAVE PATIENT MEDICARE (WNR) MEDICARE (M) PART B Aug 14, 2012 PART B [id number] [phone] JOEL PERRY PATIENT MEDICARE (WNR) MEDICARE () PART A Dec 13, 2010 PART A [id number] [phone] JOEL PERRY STAVE PATIENT MEDICARE (WNR) MEDICARE (M) PART A Dec 13, 2010 PART A [id number] [phone] JOEL PERRY PATIENT MEDICARE (WNR) MEDICARE (M) PART A Dec 13, 2010 PART A [id number] [phone] JOEL PERRY PATIENT [facility] Aug 14, 2013 [id number] JOEL PERRY PATIENT Selected Encounter This section includes the information on record at [place] for the Encounter. Date/Time Encounter Type Encounter Description Reason Pro vider Source Jul 21, 2024 08:27 PM Outpatient Encounter ADMIN PAT ACTIVTIES (MASNONCT) IHE Encounter Template Text not used by [place] Plan of Treatment: Future Appointments (+ 6 months) and Future Tests (+/- 45 days) The Plan of Treatment section includes future care activities for the patient from all [place] treatmentfacilities. This section includes future appointments and future orders which are active, pending or scheduled. Future Appointments This section includes appointments that were scheduled to occur 6 months from the date of the Encounter, up to a maximum of 20 appointments. The data comes from all [place] treatment facilities. Appointment Date/Time Appointment Type Appointme nt Facility Name Aug 03, 2024 01:00 PM AMBULATORY - MEDICINE [facility] Encounter Notes: All associated encounter notes This section contains the clinical notes associated to the Encounter. Date/Time Encounter Note(s) Provider Source Jul 21, 2024 08:27 PM PHARMACY NOTE: LOCAL TITLE: PHARMACY CUSTOMER CARE MEDICATION RENEWAL STANDARD TITLE: PHARMACY NOTE DATE OF NOTE: JUL 21, 2024@20:27 ENTRY DATE: JUL 21, 2024@20:28 AUTHOR: DANIELLA APPIAH EXP COSIGNER: URGENCY: STATUS: COMPLETED Date: Jul Division: [place] Pt referred by Pharmacy Call Center for medication renewal: Non-controlled/maintenan ce medication Medications requested: Rx #: [id number]$ APIXABAN 5MG TAB Rx #: [id number] HCTZ 25/TRIAMTERENE 37.5MG TAB Rx #: [id number] LOSARTAN 100MG TAB Defer to primary care provider To be mailed. Please review and renew if appropriate. *This note was generated by [facility]/[place] Pharmacy Customer Care. If you have any questions or need assistance, do not contact this author. Please refer all questions to your local, on-site pharmacy departments. /alta/ Daniella Appiah CPhT [employer], [place]/Pharmacy Customer Care Signed: 07/21/2024 20:28 Receipt Acknowledged By: 07/22/2024 07:19 /alta/ KAMILLE LEVIN RN-BC REGISTERED NURSE 07/22/2024 07:54 /alta/ EYAD SIMON APRN-C CERTIFIED NURSE PRACTITIONER DANIELLA APPIAH [facility]
--- OUTSIDE RECORDS SUMMARY | 2024-09-27 16:47 | XMS_ITS | Encounter Summary ---
Author Name [facility] [place] [facility] [place] Address [address] [place] [address] Care Team Providers Care Polygraph Technician Name Role Phone EYAD SIMON Primary Care [...] SUPP Aug 14, 2013 MEDICAR E SUPP [id number] JOEL PERRY PATIENT MEDICARE (WNR) MEDICARE ([place]) PART B Aug 14, 2012 PART B [id number] JOEL PERRY STAVE PATIENT MEDICARE (WNR) MEDICARE ([place]) PART B Aug 14, 2012 PART B [id number] JOEL PERRY PATIENT MEDICARE (WNR) MEDICARE () PART A Dec 13, 2010 PART A [id number] JOEL PERRY STAVE PATIENT MEDICARE (WNR) MEDICARE (M) PART A Dec 13, 2010 PART A [id number] JOEL PERRY PATIENT MEDICARE (WNR) MEDICARE (M) PART A Dec 13, 2010 PART A [id number] JOEL PERRY PATIENT [facility] Aug 14, 2013 [id number] JOEL PERRY PATIENT Selected Encounter This section includes the information on record at [place] for the Encounter. Date/Time Encounter Type Encounter Description Reason Pro vider Source May 03, 2024 11:26 AM Outpatient Encounter ADMIN PAT ACTIVTIES (MASNONCT) IHE Encounter Template Text not used by [place] Plan of Treatment: Future Appointments (+ 6 months) and Future Tests (+/- 45 days) The Plan of Treatment section includes future care activities for the patient from all [place] treatmentfacilities. This section includes future appointments and future orders which are active, pending or scheduled. Future Appointments This section includes appointments that were scheduled to occur 6 months from the date of the Encounter, up to a maximum of 20 appointments. The data comes from all [place] treatment facilities. Appointment Date/Time Appointment Type Appointme nt Facility Name Aug 03, 2024 01:00 PM AMBULATORY - MEDICINE [facility] Encounter Notes: All associated encounter notes This section contains the clinical notes associated to the Encounter. Date/Time Encounter Note(s) Provider Source May 03, 2024 11:27 AM ADMINISTRATIVE NOTE: LOCAL TITLE: CCC: SCHEDULING ADMINISTRATION STANDARD TITLE: ADMINISTRATIVE NOTE DATE OF NOTE: MAY 03, 2024@11:27 ENTRY DATE: MAY 03, 2024@11:27 AUTHOR: WILLARD MINOR COSIGNER: URGENCY: STATUS: COMPLETED CCC: SCHEDULING ADMINISTRATION Has ADDENDA Patient Demographics Patient Name: ANDRES PERRY Patient Primary Phone: [phone] Patient Primary [address]: [address] [place] [id number] Patient : 1945 Patient Age: 79 Call Back Number: [phone] Caller/Recipient Relation to Patient: Self Administrative Administrative Note Reason: Lab / Imaging Results Administrative Note Comments: [facility] called asking for lab orders to be put in the computer. stated that he needs to have repeated labs and this is the reason he has the follow up appointment with PCP. is asking to be called when lab orders have been placed so he knows when he can come in to get it done. He would like to have it done tomorrow or . IMPORTANT: This note was created by [facility] Clinical Contact Center staff. Please do not alert the staff member by adding them as a signer for future communications. Alerts are not monitored by this user. /alta/ WILLARD MINOR Signed: 05/03/2024 11:27 Receipt Acknowledged By: 05/03/2024 13:46 /alta/ ROSA ELENA LEVI RN-BC REGISTERED NURSE 05/03/2024 14:52 /alta/ AROLDO MAC LPN LPN for WILIAN KAPOOR 05/03/2024 ADDENDUM STATUS: COMPLETED Placed FBW orders as noted in last PCP office visit note. Called [facility] to advise that lab orders are available to be completed /ROSA ELENA Cordon RN-BC REGISTERED NURSE Signed: 05/12/2024 08:37 WILLARD MINOR [place] [facility]
== END 2024-09-27 15:27 | disposition home or self-care (01) ==
PROVIDERS: PCP Physician Assistant Medical; Visit Provider Internal Medicine Pulmonary Disease
DX: J45.909 Unspecified asthma, uncomplicated (principal); Z91.09 Other allergy status, other than to drugs and biological substances
CPT/HCPCS: 99214

== ENCOUNTER → 2024-09-27 14:16 | Outpatient (BNVA) | payer MEDICARE, SELFPAY | PROVIDERS: PCP Physician Assistant Medical; Visit Provider Internal Medicine Pulmonary Disease | DX: J45.909 Unspecified asthma, uncomplicated (principal); Z91.09 Other allergy status, other than to drugs and biological substances | CPT/HCPCS: 99212 ==